=== PATIENT | female | born 1965 | race Caucasian/White ===

== ENCOUNTER 2018-10-25 13:14 | Observation (INO) ==
[2018-10-25] MEDS ORDERED: NITROGLYCERIN SL PRN (14:11)
--- NOTE | 2018-10-25 14:12 | EKG Report ---
Test Performed on : 10/25/2018 1:19:14 PM Test Reason : cp Blood Pressure : / mmHG Vent. Rate : 087 BPM Atrial Rate : 093 BPM P-R Int : 000 ms QRS Dur : 090 ms QT Int : 348 ms P-R-T Axes : 000 029 082 degrees QTc Int : 418 ms Atrial fibrillation. Low voltage QRS Cannot rule out Anterior infarct , age undetermined Abnormal ECG When compared with ECG of 22-DEC-2017 07:16, Atrial fibrillation. has replaced Sinus rhythm. Unconfirmed Result
--- NOTE | 2018-10-25 14:45 | Diag Imaging Result Doc PS360 ---
EXAM: CHEST-2 VIEWS 10/25/2018 HISTORY: chest pain, sob TECHNIQUE: PA and lateral chest COMMENT: There is no evidence of acute cardiac or pulmonary disease. Compared to 07/07/2018 there has been no significant change in the appearance the chest. IMPRESSION: No evidence of acute disease. Electronically signed by Kentrell Coleman 10/25/2018 2:42 PM
[2018-10-25 14:51] LABS: INR 0.94; PROTIME 12.7 Seconds (11.0-16.0)
[2018-10-25 14:52] LABS: PTT 27.3 Seconds (22.3-41.8)
[2018-10-25 14:59] LABS: BASO# 0.04 X1000 (0.0-0.2); BASO% 0.5 % (0.0-0.8); EOS# 0.16 X1000 (0.0-0.7); EOS% 1.8 % (0.0-10.0); HEMATOCRIT 39.8 % (37.0-47.0); HEMOGLOBIN 14.3 g/dL (12.0-16.0); IMM GRAN# 0.03 X1000 (0.0-0.04); IMM GRAN% 0.3 % (0.0-0.5); LYMPH# 2.18 X1000 (1.2-3.4); LYMPH% 25.1 % (20.5-51.1); MCH 31.7 PG (27-31); MCHC 35.9 g/dL (33-37); MCV 88.2 FL (81-99); MONO# 0.86 X1000 (0.11-0.59); MONO% 9.9 % (1.7-9.3); MPV 10.3 FL (7.4-10.4); NEUT# 5.42 X1000 (1.4-6.5); NEUT% 62.4 % (42.2-75.2); PLT 313 X1000 (130-400); RBC 4.51 XMIL (4.2-5.4); RDW 12.9 % (11.5-14.5); WBC 8.69 X1000 (4.8-10.8)
[2018-10-25 15:11] LABS: AGAP 15; ALB/GLOB RATIO 1.4; ALKALINE PHOSPHATASE 76 U/L (32-104); BUN 14 mg/dL (8-22); CALCIUM 9.5 mg/dL (8.8-10.2); CHLORIDE 99 mmol/L (98-107); CK PROFILE 111 U/L (24-173); COSMO 276; CREATININE 0.5 mg/dL (0.5-0.9); ESTIMATED GFR > 60; GLUCOSE 156 mg/dL (70-104); GOT 18 U/L (10-30); GPT 20 U/L (10-36); MAGNESIUM 1.7 mg/dL (1.5-2.7); POTASSIUM 4.2 mmol/L (3.5-5.1); SODIUM 136 mmol/L (136-145); TCO2 22 mmol/L (25-35); TOTAL PROTEIN 6.9 g/dL (6.3-8.3)
--- NOTE | 2018-10-25 17:04 | PROVIDER DOCUMENTATION ---
This chart was entered by Adali Mack Scribe, acting as scribe for Simran Pantoja CRNP. HPI-Chest Pain - General Chief Complaint: Chest Pain Stated Complaint: CP X 1 DAY-HEART PT Time Seen by Provider: 10/25/18 14:04 Source: patient Allergies/Adverse Reactions: Patient Allergies Allergy/AdvReac Type Severity Reaction Status Date / Time erythromycin base Allergy RASH Verified 10/25/18 14:14 Home Medications: Home Medication List Medication Instructions Recorded Confirmed Last Taken Type Aspirin [Aspirin EC] 1 tab PO DAILY 04/14/17 10/25/18 12/21/17 06:45 History Glipizide 5 mg PO DAILY 04/14/17 10/25/18 12/21/17 06:45 History Ticagrelor [Brilinta] 90 mg PO BID 04/14/17 10/25/18 12/21/17 06:45 History ATORVAstatin [Lipitor] 40 mg PO QHS 12/21/17 10/25/18 12/20/17 22:00 History Amlodipine [Norvasc] 10 mg PO DAILY 12/21/17 10/25/18 12/21/17 06:45 History Carvedilol 3.125 mg PO BID 12/21/17 10/25/18 12/21/17 06:45 History Lisinopril/Hydrochlorothiazide 1 each PO DAILY 12/21/17 10/25/18 12/21/17 06:45 History [Lisinopril-Hctz 20-12.5 mg Tab] Metoprolol Tartrate 25 mg PO DAILY 12/21/17 10/25/18 12/21/17 06:45 History Multivitamins/Minerals [Centrum 1 each PO DAILY 12/21/17 10/25/18 12/21/17 06:45 History Silver] Ranolazine [Ranexa] 500 mg PO BID 12/21/17 12/21/17 12/21/17 06:45 History Umeclidinium/Vilanterol [Anoro 1 puff INH DAILY 12/21/17 10/25/18 12/21/17 06:45 History Ellipta 62.5-25 Mcg INH] - History of Present Illness-CP Nature of Presenting Problem: Patient is a 53 year old female who presents with chest pain. States nausea, shortness of breath, and diaphoresis with chest pain. Reports symptoms started 3 hours ago. States history of cardiac stent and A fib. Location: reports: other (midsternal) Chest Pain Radiation: reports: no radiation Quality of Pain: reports: pressure Severity in ED: mild Onset/Duration: 1-3 hours ago (3 hours ago) Timing: still present Associated Symptoms: reports: diaphoresis, nausea, shortness of breath Aspirin Treatment Today: 81 mg x 1, provided at home Prior Chest Pain/Cardiac Workup: reports: cardiac cath (Dec 2017) Similar Symptoms Previously?: No Recently Seen Here or By Another Healthcare Provider: No Review of Systems - Adult - REVIEW OF SYSTEMS - ADULT Constitutional: reports: no symptoms reported. denies: chills, fever, fatique Eyes: reports: no symptoms reported Ears, Nose, Mouth & Throat: reports: no symptoms reported Cardiovascular: reports: see HPI, chest pain, palpitations (chronic). denies: irregular heart rate Respiratory: reports: see HPI, shortness of breath. denies: cough, wheezing Gastrointestinal: reports: see HPI, nausea. denies: abdominal pain, vomiting Genitourinary: reports: no symptoms reported Musculoskeletal: reports: no symptoms reported Integumentary: reports: no symptoms reported Neurological: reports: no symptoms reported Psychiatric: reports: no symptoms reported Endocrine: reports: no symptoms reported Hematologic/Lymphatic: reports: no symptoms reported Allergic/Immunologic: reports: no symptoms reported All Other Systems: Reviewed and Negative Past History - Adult - PAST MEDICAL HISTORY-ADULT Review of Records: reports: Old Records Reviewed, Nursing Assessment Review, Medications Reviewed, Social history reviewed & non-contributory. Major Childhood Illnesses: reports: denies history Cardiovascular: reports: cardiac disease, A-Fib, HTN, hyperlipidemia, other (HX OF SVT AND HAD ABLATION DONE) Respiratory: reports: asthma, COPD Gastrointestinal: reports: GERD Obstetrical/Gynecological: reports: denies history Genitourinary: reports: denies history Musculoskeletal: reports: denies history Neurological: reports: denies history Psychiatric: reports: denies history Endocrine/Immune: reports: Diabetes Other Conditions: reports: denies history - PRIOR SURGERIES/PROCEDURES Surgical/Procedure History: reports: cardiac stent, , tonsillectomy, other (cardiac ablation) - IMMUNIZATION STATUS Childhood Immunizations: See Nurse Assessment Flu Vaccine: See Nurse Assessment - FAMILY HISTORY Family History: reviewed, not pertinent, other (MOTHER HAS CARDIAC DZ) - SOCIAL HISTORY Smoking: cigarettes (former) Substance Use: denies Physical Exam-General - PHYSICAL EXAM-ADULT Initial Vital Signs Reviewed: Yes - CONSTITUTIONAL General Appearance: alert, no apparent distress, obese. negative: lethargic - HEAD, EARS, NOSE, MOUTH & THROAT HENMT: normocephalic/atraumatic, moist mucous membranes. negative: angioedema - NECK Neck: full range of motion, supple, normal inspection - RESPIRATORY Respiratory: chest non-tender, lungs clear, normal breath sounds, no respiratory distress, no accessory muscle use. negative: crackles, rales, rhonchi, stridor, wheezing - CARDIOVASCULAR Cardiovascular: normal peripheral pulses, regular rate, rhythm, no edema. negative: tachycardia - GASTROINTESTINAL (ABDOMEN) Abdominal Exam: normal bowel sounds, non tender, soft. negative: guarding - LYMPHATIC Lymphatic: no adenopathy - MUSCULOSKELETAL Back Exam: normal inspection Extremity: normal range of motion, non-tender, normal inspection. negative: deformity, erythema, swelling - SKIN Integumentary: normal color, normal turgor, warm/dry. negative: diaphoresis, erythema, pallor - NEUROLOGIC Neurologic: grossly normal. negative: aphasia, facial droop - PSYCHIATRIC Psych/Mental Status: normal mood/affect, normal thought content, normal thought process, oriented x 3. negative: anxious - HEART Score HEART Score: History: Moderately Suspicious HEART Score: ECG: Normal HEART Score: Age: 45-65 Years HEART Score: Risk Factors for Atherosclerotic Disease: > or = 3 Risk Factors or History of Atherosclerotic Disease HEART Score: Troponin: < or = Normal Limit Total HEART Score:: 4 Progress - PLAN OF CARE/RESULTS Progress/Plan/Lab Results: Vital Signs - 8 hr 10/25/18 13:20 Temperature 97.8 F Pulse Rate 103 H Respiratory Rate 18 Blood Pressure 168/102 O2 Sat by Pulse Oximetry 96 Laboratory Results - last 24 hr 10/25/18 10/25/18 10/25/18 13:24 13:24 13:24 WBC 8.69 RBC 4.51 Hgb 14.3 Hct 39.8 MCV 88.2 MCH 31.7 H MCHC 35.9 RDW Std Deviation 12.9 Plt Count 313 MPV 10.3 Immature Gran % (Auto) 0.3 Neut % (Auto) 62.4 Lymph % (Auto) 25.1 [place] % (Auto) 9.9 H Eos % (Auto) 1.8 Baso % (Auto) 0.5 Immature Gran # (Auto) 0.03 Neut # (Auto) 5.42 Lymph # (Auto) 2.18 [place] # (Auto) 0.86 H Eos # (Auto) 0.16 Baso # (Auto) 0.04 PT INR PTT (Actin FS) Sodium 136 Potassium 4.2 Chloride 99 Carbon Dioxide 22 L Anion Gap 15 BUN 14 Creatinine 0.5 Estimated GFR/1.73 m2 > 60 BUN/Creatinine Ratio 28 Glucose 156 H Calculated Osmolality 276 Calcium 9.5 Magnesium 1.7 Total Bilirubin 0.30 AST 18 ALT 20 Alkaline Phosphatase 76 Creatine Kinase 111 Troponin T Bjd-V-[id number] Pept 826 H Total Protein 6.9 Albumin 4.0 Globulin 2.9 Albumin/Globulin Ratio 1.4 10/25/18 10/25/18 13:24 13:24 WBC RBC Hgb Hct MCV MCH MCHC RDW Std Deviation Plt Count MPV Immature Gran % (Auto) Neut % (Auto) Lymph % (Auto) [place] % (Auto) Eos % (Auto) Baso % (Auto) Immature Gran # (Auto) Neut # (Auto) Lymph # (Auto) [place] # (Auto) Eos # (Auto) Baso # (Auto) PT 12.7 INR 0.94 PTT (Actin FS) 27.3 Sodium Potassium Chloride Carbon Dioxide Anion Gap BUN Creatinine Estimated GFR/1.73 m2 BUN/Creatinine Ratio Glucose Calculated Osmolality Calcium Magnesium Total Bilirubin AST ALT Alkaline Phosphatase Creatine Kinase Troponin T < 0.010 [id number] Pept Total Protein Albumin Globulin Albumin/Globulin Ratio Orders Category Date Time Status Nursing- Obtain EKG ONCE Care 10/25/18 14:10 Active CHEST-2 VIEWS [RAD] Stat Exams 10/25/18 14:10 Completed BNP [PRO B-NATRIURETIC PEPTIDE] Stat Lab 10/25/18 13:24 Completed CBC WITH DIFF [HEME] Stat Lab 10/25/18 13:24 Completed CK PROFILE [SP CHEM] Stat Lab 10/25/18 13:24 Completed COMPREHENSIVE METABOLIC PANEL [CHEM] Stat Lab 10/25/18 13:24 Completed MAGNESIUM [CHEM] Stat Lab 10/25/18 13:24 Completed PROTIME WITH INR [COAG] Stat Lab 10/25/18 13:24 Completed PTT [COAG] Stat Lab 10/25/18 13:24 Completed TROPONIN T Stat Lab 10/25/18 13:24 Completed Nitroglycerin Sl [Nitroglycerin] Med 10/25/18 14:11 Active 0.4 mg SL Q5M PRN PRN EKG [EKG] Stat Ther 10/25/18 14:10 Draft Result Diagrams: 10/25/18 13:24 10/25/18 13:24 - REASSESSMENT Reassessment #1 Time Reassessed: 15:20 (Discussed pt with Dr Cobb, suggests admission, will page hospitalist. discussed findings thus far with pt. Pt states she is still having pain, reports she has not had any nitro SL yet, RN at bedside to start IV.) Status: unchanged - EKG 1 Time of EKG reading by physician:: 13:19 EKG Read and Signed by:: Candido Cobb EKG Interpretation (*Must complete 3 of following elements*): Abnormal Rate: 87 Rhythm: atrial fibrillation [place]: normal QRS: other (low voltage) Comments: cannot rule out anterior infarct, age undetermined - XRAY 1 XRAY Study: Chest Impression: See EMR Report ( EXAM: CHEST-2 VIEWS 10/25/2018 HISTORY: chest pain, sob TECHNIQUE: PA and lateral chest COMMENT: There is no evidence of acute cardiac or pulmonary disease. Compared to 07/07/2018 there has been no significant change in the appearance the chest. IMPRESSION: No evidence of acute disease. Electronically signed by Kentrell Coleman 10/25/2018 2:42 PM 10/25/18 1442 Interpreting Physician: Kentrell Coleman MD Dictated Date/Time: 10/25/18 1442 cc: Simran Pantoja; Leandro Dempsey Jr, MD) - CONSULTS/PCP/HOSPITALIST Notification #1 *Consult/PCP/Hospitalist*: SANDRA Howell for Hospitalist Time Discussed: 15:38 Reason/Comments: SANDRA Khalil, consulted with Lynda about patient. Consult Disposition: Will see in ED, Admit Departure - Departure Date of Disposition Decision: 10/25/18 Time of Disposition Decision: 15:39 DIAGNOSIS: Chest pain Disposition: ADMITTED INPATIENT 09 Certified Medical Emergency: Emergent Condition: Stable Referrals and Follow-Ups: Leandro Dempsey Jr, MD [Primary Care Provider] - - Critical Care Note This patient required my direct & personal management of CC.: No Attestation - Physician/ MIGUEL Attestation Patient care was provided by Advanced Practice Provider:: Yes Advanced Practice Provider:: Simran Pantoja Advanced Practice Provider documentation review:: The Mid-level provider documentation, treatment plan and medical decision making was reviewed by the physician who agrees with all treatment and medical decision making by the MLP. The physician spent face to face time with patient:: No Advanced Practice Provider documentation review:: Supervising physician onsite and consulted in the evaluation and care of this patient. The physician did not have a face to face encounter with the patient. This chart was documented by the indicated scribe, (Adali Mack Scribe) and accurately reflects the services I performed and decisions made by me, Simran Pantoja CRNP, as attested by the provider's signature.
[2018-10-25] MEDS ORDERED: MORPHINE IV PRN (18:43)
--- NOTE | 2018-10-25 19:38 | HISTORY AND PHYSICAL ---
ADDENDUM: This is a 53-year-old female with heart failure and CAD status post PCI. She came in with crushing chest pain at rest. She is a patient of Dr. Roy, I think. In any case, the patient was evaluated in the ER. Her workup was negative because of risk factors. Obviously, she is going to be placed in observation for chest pain. She had a cardiac cath in 2017 so it was almost 11 months ago so we will get cardiology to see her. I plan for possible stress test noninvasive imaging tomorrow unless Cardiology feels differently. Her heart failure seems to be compensated. Lungs are clear. She is not tachycardic. We will continue her regular medications and monitor closely. I will hold her diabetic medication just because she is going to be n.p.o. tomorrow. This is a [id number] encounter note with Uma Tyler. cc: MD Leandro Jose MD
--- NOTE | 2018-10-25 19:38 | HISTORY AND PHYSICAL ---
PRIMARY CARE PROVIDER: Dr. Leandro Dempsey [employer] FORMS: Dr. Roy. CHIEF COMPLAINT: Chest pain, palpitations. HISTORY OF PRESENT ILLNESS: Ms. Fletcher is a 53-year-old, female, who carries a past medical history of coronary artery disease, status post stenting 2 years ago, hypertension, diabetes mellitus type 2, morbid obesity, COPD, dyslipidemia, who reported to the ED after experiencing what she describes as a ton of bricks sitting on her chest with center-type chest pain. Positive for nausea, diaphoresis, dizziness, palpitations. She states she is normally short of breath, but she has been more short of breath. The center pain is pretty much resolved. She just now feels pressure. She did not receive any medications in the ER that relieved this pain. It was just relieved by rest. She denies any recent illness, fever, chills. No issues with urinary or issues with bowel movements. Workup in the ED, chest x-ray showed no evidence of acute disease. EKG showed atrial fibrillation at 87 beats per minute. First set of troponin was negative. Other laboratory data was essentially unremarkable. We will admit her to the medical telemetry floor, make her n.p.o. after midnight, consult Cardiology. PAST MEDICAL HISTORY: 1. Coronary artery disease, status post stenting. 2. Hypertension. 3. Diabetes mellitus type 2. 4. Morbid obesity. 5. COPD. 6. Dyslipidemia. PAST SURGICAL HISTORY: 1. section x2, cardiac ablation. 2. Tonsillectomy. 3. Cardiac stent. 4. Tubes in the ears. FAMILY HISTORY: Reviewed and noncontributory. SOCIAL HISTORY: Patient lives at home with family. She quit smoking back in 2018. No alcohol or illicit drug use. ALLERGIES: Erythromycin base. HOME MEDICATIONS: 1. Lipitor 40 mg p.o. at bedtime. 2. Anoro Ellipta 62.5/25 mcg inhaler 1 puff inhaled daily. 3. Aspirin 81 mg p.o. daily. 4. Brilinta 90 mg p.o. b.i.d. 5. Carvedilol 3.125 mg p.o. b.i.d. 6. Centrum Silver 1 each p.o. daily. 7. Glipizide 5 mg p.o. daily. 8. Lisinopril/hydrochlorothiazide 20/12.5 mg 1 each p.o. daily. 9. Metoprolol 25 mg p.o. daily. 10. Norvasc 10 mg p.o. daily. 11. Ranexa 500 mg p.o. b.i.d. PHYSICAL EXAMINATION: VITAL SIGNS: Only recorded vital signs are from 1320, temperature is 97.8 degrees, heart rate 103, respirations 18, blood pressure 168/102, O2 is 96% on room air. GENERAL: Ms. Fletcher is a pleasant, 53-year-old, female, who is sitting up in the bed in no acute distress. HEENT: Atraumatic, normocephalic. PERRL. NECK: Supple. Trachea midline. CARDIOVASCULAR: S1-S2 appreciated. No murmurs, gallops, rubs noted. RESPIRATORY: Lung sounds clear bilaterally. ABDOMEN: Obese, soft, nontender, nondistended. Positive bowel sounds x4 quadrants. EXTREMITIES: Lower extremities negative for edema. NEUROLOGIC: Patient has no focal deficits. DIAGNOSTIC DATA: Chest x-ray, no acute disease. EKG, atrial fibrillation at 87 beats per minute. LABORATORY DATA: White count is 8, hemoglobin and hematocrit 14 and 39, platelet count is 313,000. Sodium 136, potassium 4.2, BUN 14, creatinine 0.5, blood glucose is 156. Troponin less than 0.010. ProBNP is 826. ASSESSMENT AND PLAN: 1. Chest pain in a known patient with cardiac disease, status post stenting 2 years ago. We will continue her on her home medications, consult Cardiology, check serial cardiac enzymes. We will make her n.p.o. after midnight. She had a full cardiac workup back in December 2017. 2. Elevated proBNP with no history of congestive heart failure. We will recheck an echocardiogram in the a.m. 3. Diabetes mellitus type 2. I will place her on patterned blood sugars with sliding scale insulin. 4. Hypertension. We will continue with her antihypertensive regimen. 5. Morbid obesity. Patient will need to be counseled on weight loss and proper diet and exercise. 6. Gastroesophageal reflux disease. Continue patient's home medications. 7. Further recommendations to follow physician evaluation, laboratory and diagnostic data. Dictated by SANDRA Damon for Ney Boyd MD cc: MD Joe Jose MD Joel A. Dempsey, MD
[2018-10-25] MEDS: HUMALOG SUBQ SCH (20:27)
[2018-10-25] MEDS ORDERED: LIPITOR PO SCH (21:00)
[2018-10-25] MEDS: COREG PO SCH (22:04)
[2018-10-25] MEDS: BRILINTA PO SCH (22:04)
[2018-10-26 07:20] LABS: BASO# 0.04 X1000 (0.0-0.2); BASO% 0.5 % (0.0-0.8); EOS# 0.19 X1000 (0.0-0.7); EOS% 2.5 % (0.0-10.0); HEMATOCRIT 41.1 % (37.0-47.0); HEMOGLOBIN 14.5 g/dL (12.0-16.0); LYMPH# 1.65 X1000 (1.2-3.4); LYMPH% 21.5 % (20.5-51.1); MCH 31.4 PG (27-31); MCHC 35.3 g/dL (33-37); MONO# 0.66 X1000 (0.11-0.59); MONO% 8.6 % (1.7-9.3); NEUT# 5.14 X1000 (1.4-6.5); NEUT% 66.9 % (42.2-75.2); PLT 299 X1000 (130-400); RBC 4.62 XMIL (4.2-5.4); RDW 13.1 % (11.5-14.5); WBC 7.68 X1000 (4.8-10.8)
[2018-10-26] MEDS ORDERED: ANORO ELLIPTA 62.5-25 MCG INH INH SCH (07:30)
[2018-10-26 07:33] LABS: HEMOGLOBIN A1C 6.5 % (4.8-6.0)
[2018-10-26 07:37] LABS: AGAP 13; ALB/GLOB RATIO 1.2; ALBUMIN 3.9 g/dL (3.5-5.0); ALKALINE PHOSPHATASE 71 U/L (32-104); BUN 11 mg/dL (8-22); CALCIUM 8.7 mg/dL (8.8-10.2); CHLORIDE 102 mmol/L (98-107); COSMO 279; CREATININE 0.5 mg/dL (0.5-0.9); ESTIMATED GFR > 60; GLUCOSE 176 mg/dL (70-104); GOT 20 U/L (10-30); GPT 23 U/L (10-36); POTASSIUM 4.3 mmol/L (3.5-5.1); SODIUM 138 mmol/L (136-145); TCO2 23 mmol/L (25-35); TOTAL BILIRUBIN 0.34 mg/dL (0.20-1.00); TOTAL PROTEIN 7.1 g/dL (6.3-8.3)
--- NOTE | 2018-10-26 07:49 | EKG Report ---
Test Performed on : 10/26/2018 07:04:35 AM Test Reason : cp Blood Pressure : / mmHG Vent. Rate : 073 BPM Atrial Rate : 073 BPM P-R Int : 150 ms QRS Dur : 092 ms QT Int : 396 ms P-R-T Axes : 005 054 052 degrees QTc Int : 436 ms Normal sinus rhythm. Cannot rule out Anterior infarct (cited on or before 25-OCT-2018) Abnormal ECG When compared with ECG of 25-OCT-2018 13:19, (Unconfirmed) Sinus rhythm. has replaced Atrial fibrillation. Confirmed by Harpreet CARDENAS MRajiv Bynum ([id number]) on 10/30/2018 9:29:31 PM
[2018-10-26] MEDS: HUMALOG SUBQ SCH ×3 (07:50→15:36)
[2018-10-26] MEDS ORDERED: LEXISCAN ONE (08:32)
[2018-10-26] MEDS ORDERED: ASPIRIN EC PO SCH (09:00)
[2018-10-26] MEDS ORDERED: LOPRESSOR PO SCH (09:00)
[2018-10-26] MEDS ORDERED: CENTRUM SILVER PO SCH (09:00)
[2018-10-26] MEDS ORDERED: PRINZIDE 20/12.5MG PO SCH (09:00)
[2018-10-26] MEDS ORDERED: GLUCOTROL PO SCH (09:00)
[2018-10-26] MEDS ORDERED: NORVASC PO SCH (09:00)
[2018-10-26] MEDS: COREG PO SCH (10:02)
[2018-10-26] MEDS: BRILINTA PO SCH (10:03)
--- NOTE | 2018-10-26 14:10 | Diag Imaging Result Document ---
PROCEDURE NAME: MYOCARDIAL PERF SCAN, STR/REST - 10/26/2018 LEXISCAN SESTAMIBI INTERPRETATION: SUMMARY: The patient was administered 15.7 mCi of technetium-99m sestamibi, after which resting cardiac images were obtained. The patient was administered Lexiscan 0.4 mg intravenously after which the heart rate went from 61 beats per minute to 92 beats per minute, and the blood pressure went from 150/71 to 148/58. With Lexiscan, the patient denied chest discomfort. Following the administration of Lexiscan, the patient was administered 45.8 mCi of technetium-99m sestamibi, after which gated stress cardiac images were obtained. Baseline ECG demonstrated sinus rhythm. With Lexiscan, there were no diagnostic ST-segment changes. SPECT images were reconstructed in the short, horizontal long, and vertical long axes. Review of these images demonstrated mildly diminished activity in the anterior wall and apex on stress images, which appears similar on resting images. No significant reversibility is evident. Gated images demonstrate calculated left ventricular ejection fraction of 80% with symmetrical wall motion. CONCLUSIONS: 1. Adequate response to Lexiscan. 2. Clinically negative for chest pain. 3. Electrocardiographically negative for Lexiscan-induced myocardial ischemia. 4. Lexiscan sestamibi images demonstrate fixed mildly diminished activity in the anterior wall and apex with corresponding preserved regional wall motion most consistent with breast attenuation artifact. There is no convincing scintigraphic evidence of inducible myocardial ischemia. Normal left ventricular systolic function demonstrated. cc: MD Ney Tompkins MD
[2018-10-26 15:07] VITALS: BP 159/66
--- NOTE | 2018-10-27 00:27 | ECHO REPORT ---
ORDER DATE: 10/26/2018 MEASUREMENTS: Left ventricular internal diameter in diastole 5.3. Aortic root 2.5. Left atrium 4.0. SUMMARY: 1. Very difficult study for interpretation due to very limited acoustic window quality. 2. Aortic valve is not well imaged but appears to open adequately on 2-dimensional images. Peak gradient across aortic valve is 19 mmHg. Mitral and tricuspid valves are without evidence of structural abnormality with trace mitral regurgitation and trace tricuspid regurgitation. The aortic root is normal in size. 3. Normal left ventricular chamber size with mild to moderate concentric left hypertrophy is demonstrated. Estimated left ejection fraction appears to be at least 65%. No regional wall motion abnormalities are evident. Left atrium is borderline enlarged. Right atrium and right ventricle are normal in size with grossly preserved right ventricular systolic function. 4. No pericardial effusion. 5. Appearance of inferior vena cava suggests normal central venous pressure. CONCLUSIONS: 1. Very difficult study for interpretation. 2. Aortic valve sclerosis with adequate aortic valve opening evident. 3. Mild to moderate concentric left ventricular hypertrophy with estimated left ventricular ejection fraction at least 65%. 4. Borderline left atrial enlargement. cc: Cecilio Esparza MD
--- NOTE | 2018-10-27 07:35 | DISCHARGE SUMMARY ---
ADMISSION DATE: 10/25/2018 DISCHARGE DATE: 10/26/2018 DISCHARGE DIAGNOSES: 1. Chest pain, atypical. 2. Known coronary artery disease. 3. Diabetes. HISTORY: Briefly, this is a 53-year-old female patient of Dr. Dempsey and Dr. Roy presenting with chest pressure. She has known CAD. She has had a stent in the past. She is hypertensive and diabetic. She came in for evaluation. She was found to have a negative workup initially. Her cardiac enzymes have been negative, and her A1c shows pretty good control diabetes 6.5. EKGs were unremarkable. She underwent myocardial perfusion stress testing which was negative clinically. She had a fixed defect which felt was due to breast attenuation, but there was no ischemia. EF was intact. Plan today is for her to be discharged and follow up with her primary payroll and benefits assistant Dr. Roy and her PCP in 1 to 2 weeks. I am going to empirically start Prilosec and refer her to GI for evaluation. She may need endoscopy and/or ultrasonography of gallbladder to rule out other etiologies of chest pain. DISCHARGE MEDICATIONS: 1. Lipitor 40. 2. Anoro daily. 3. Aspirin 81 daily. 4. Brilinta 90 b.i.d. 5. Multivitamin daily. 6. Glipizide 5 daily. 7. Lisinopril hydrochlorothiazide daily 20/12.5. 8. Amlodipine 10 daily. 9. Coreg 6.25 b.i.d. 10. Prilosec 40 daily. DISCHARGE CONDITION: Stable. TIME SPENT: 32 minute discharge. cc: MD Dr. Ke Jose MD
== END 2018-10-26 17:05 | disposition home or self-care (01) ==
LOC: ED 13:14 → 3N 13:14
PROVIDERS: ATTEND Internal Medicine

== ENCOUNTER 2019-01-26 14:49 | Inpatient (IN) ==
[2019-01-26] MEDS ORDERED: ASPIRIN PO ONE (14:55)
--- NOTE | 2019-01-26 15:04 | EKG Report ---
Test Performed on : 01/26/2019 2:58:29 PM Test Reason : CP Blood Pressure : / mmHG Vent. Rate : 088 BPM Atrial Rate : 088 BPM P-R Int : 158 ms QRS Dur : 090 ms QT Int : 354 ms P-R-T Axes : 037 -13 070 degrees QTc Int : 428 ms Sinus rhythm. with occasional premature ventricular complexes. Otherwise normal ECG When compared with ECG of 26-OCT-2018 07:04, premature ventricular complexes. are now present Questionable change in QRS axis Unconfirmed Result
[2019-01-26 15:17] LABS: BASO# 0.02 X1000 (0.0-0.2); BASO% 0.2 % (0.0-0.8); EOS# 0.08 X1000 (0.0-0.7); EOS% 0.7 % (0.0-10.0); HEMATOCRIT 44.6 % (37.0-47.0); HEMOGLOBIN 15.7 g/dL (12.0-16.0); LYMPH# 2.35 X1000 (1.2-3.4); MCH 31.5 PG (27-31); MCHC 35.2 g/dL (33-37); MCV 89.6 FL (81-99); MONO# 0.83 X1000 (0.11-0.59); MONO% 7.4 % (1.7-9.3); MPV 10.4 FL (7.4-10.4); NEUT# 7.93 X1000 (1.4-6.5); NEUT% 70.7 % (42.2-75.2); PLT 303 X1000 (130-400); RBC 4.98 XMIL (4.2-5.4); RDW 12.8 % (11.5-14.5); WBC 11.21 X1000 (4.8-10.8)
--- NOTE | 2019-01-26 15:22 | Diag Imaging Result Doc PS360 ---
EXAM: CHEST-2 VIEWS 01/26/2019 HISTORY: CP TECHNIQUE: PA and lateral chest COMMENT: There is no evidence of acute cardiac or pulmonary disease. Compared to 10/25/2018 there has been no significant change in the appearance of the chest. IMPRESSION: No evidence of acute disease. Electronically signed by Kentrell Coleman 01/26/2019 3:20 PM
[2019-01-26 16:00] LABS: AGAP 17; ALB/GLOB RATIO 1.6; ALBUMIN 4.6 g/dL (3.5-5.0); ALKALINE PHOSPHATASE 89 U/L (32-104); BUN 15 mg/dL (8-22); CALCIUM 9.8 mg/dL (8.8-10.2); CHLORIDE 97 mmol/L (98-107); CK PROFILE 157 U/L (24-173); COSMO 271; CREATININE 0.7 mg/dL (0.5-0.9); ESTIMATED GFR > 60; GLUCOSE 108 mg/dL (70-104); GOT 18 U/L (10-30); GPT 18 U/L (10-36); POTASSIUM 4.2 mmol/L (3.5-5.1); SODIUM 135 mmol/L (136-145); TCO2 21 mmol/L (25-35); TOTAL BILIRUBIN 0.24 mg/dL (0.20-1.00); TOTAL PROTEIN 7.4 g/dL (6.3-8.3)
[2019-01-26 16:11] LABS: INR 0.91; PROTIME 12.4 Seconds (11.0-16.0)
[2019-01-26 16:12] LABS: PTT 26.2 Seconds (22.3-41.8)
--- NOTE | 2019-01-26 16:27 | PROVIDER DOCUMENTATION ---
HPI-General Adult - General Chief Complaint: Chest Pain Stated Complaint: CP/HEART PALPITATIONS Time Seen by Provider: 01/26/19 15:57 Source: patient Allergies/Adverse Reactions: Patient Allergies Allergy/AdvReac Type Severity Reaction Status Date / Time erythromycin base Allergy RASH Verified 01/26/19 14:54 Home Medications: Home Medication List Medication Instructions Recorded Confirmed Last Taken Type Aspirin [Aspirin EC] 1 tab PO DAILY 04/14/17 01/26/19 12/21/17 06:45 History Glipizide 10 mg PO DAILY 04/14/17 01/26/19 12/21/17 06:45 History Lisinopril/Hydrochlorothiazide 1 each PO BID 12/21/17 01/26/19 12/21/17 06:45 History [Lisinopril-Hctz 20-12.5 mg Tab] Diltiazem HCl [Diltiazem 24Hr ER] 1 cap PO DAILY 01/26/19 01/26/19 Unknown Hi story Isosorbide Mononitrate [Isosorbide 1 tab PO DAILY 01/26/19 01/26/19 Unknown History Mononitrate ER] Metformin HCl 1 tab PO BID 01/26/19 01/26/19 Unknown History - History of Present Illness -Gen Adult Nature of Presenting Problems: 53yo female presents with CC of chest pressure and palpitations. The patient reports that she has chronic palpitations, but reports acute worsening of palpitations with chest pressure starting yesterday. The patient reports that associated with these symptoms were facial and bilateral arm numbness. The patie nt denies any shortness of breath. The pain is not relieved with rest. The patient does report some increase in blood pressure as well as a headache. The patient denies fevers, nausea, diarrhea, hemoptysis, or abdominal pain. Review of Systems - Adult - REVIEW OF SYSTEMS - ADULT Constitutional: denies: fever Eyes: denies: no symptoms reported Ears, Nose, Mouth & Throat: reports: see HPI, other (facial numbness) Cardiovascular: reports: chest pain, palpitations Respiratory: denies: hemoptysis, shortness of breath Gastrointestinal: denies: abdominal pain Genitourinary: reports: no symptoms reported Musculoskeletal: reports: back pain Integumentary: reports: no symptoms reported Neurological: reports: headache/migraines, numbness Psychiatric: reports: no symptoms reported Endocrine: reports: no symptoms reported Hematologic/Lymphatic: reports: no symptoms reported, other (no bleeding) Allergic/Immunologic: reports: no symptoms reported, other (no swelling) Past History - Adult - PAST MEDICAL HISTORY-ADULT Review of Records: reports: Nursing Assessment Review Major Childhood Illnesses: reports: denies history Cardiovascular: reports: cardiac disease, A-Fib, HTN, hyperlipidemia, other (HX OF SVT AND HAD ABLATION DONE) Respiratory: reports: asthma, COPD Gastrointestinal: reports: GERD Obstetrical/Gynecological: reports: denies history Genitourinary: reports: denies history Musculoskeletal: reports: denies history Neurological: reports: denies history Psychiatric: reports: denies history Endocrine/Immune: reports: Diabetes Other Conditions: reports: denies history - PRIOR SURGERIES/PROCEDURES Surgical/Procedure History: reports: cardiac stent, , tonsillectomy, other (cardiac ablation) - IMMUNIZATION STATUS Childhood Immunizations: See Nurse Assessment Flu Vaccine: See Nurse Assessment - FAMILY HISTORY Family History: other (MOTHER HAS CARDIAC DZ and FMHX of CVA) - SOCIAL HISTORY Smoking: denies Substance Use: none/never Alcohol Use Frequency: never Physical Exam-General - PHYSICAL EXAM-ADULT Initial Vital Signs Reviewed: Yes - CONSTITUTIONAL General Appearance: appears well, alert, no apparent distress - EYES Eyes: negative: conjuctival exudate, sclera injected, scleral icterus - HEAD, EARS, NOSE, MOUTH & THROAT HENMT: normocephalic/atraumatic, moist mucous membranes - RESPIRATORY Respiratory: lungs clear, normal breath sounds. negative: rales, stridor, wheezing - CARDIOVASCULAR Cardiovascular: regular rate, rhythm, no edema - GASTROINTESTINAL (ABDOMEN) Abdominal Exam: non tender, soft - MUSCULOSKELETAL Back Exam: normal inspection Extremity: non-tender - SKIN Integumentary: normal color, normal turgor, warm/dry - NEUROLOGIC Neurologic: grossly normal - PSYCHIATRIC Psych/Mental Status: normal mood/affect, normal thought content, normal thought process Progress - PLAN OF CARE/RESULTS Progress/Plan/Lab Results: Vital Signs - 8 hr 01/26/19 14:50 Temperature 97.5 F L Pulse Rate 90 Respiratory Rate 20 Blood Pressure 176/94 O2 Sat by Pulse Oximetry 96 Laboratory Results - last 24 hr 01/26/19 01/26/19 01/26/19 15:08 15:08 15:08 WBC 11.21 H RBC 4.98 Hgb 15.7 Hct 44.6 MCV 89.6 MCH 31.5 H MCHC 35.2 RDW Std Deviation 12.8 Plt Count 303 MPV 10.4 Immature Gran % (Auto) 0.0 Neut % (Auto) 70.7 Lymph % (Auto) 21.0 [place] % (Auto) 7.4 Eos % (Auto) 0.7 Baso % (Auto) 0.2 Immature Gran # (Auto) 0.00 Neut # (Auto) 7.93 H Lymph # (Auto) 2.35 [place] # (Auto) 0.83 H Eos # (Auto) 0.08 Baso # (Auto) 0.02 PT INR PTT (Actin FS) D-Dimer, Quantitative Sodium 135 L Potassium 4.2 Chloride 97 L Carbon Dioxide 21 L Anion Gap 17 BUN 15 Creatinine 0.7 Estimated GFR/1.73 m2 > 60 BUN/Creatinine Ratio 21 Glucose 108 H Calculated Osmolality 271 Calcium 9.8 Total Bilirubin 0.24 AST 18 ALT 18 Alkaline Phosphatase 89 Creatine Kinase 157 Troponin T [id number] Pept 54 Total Protein 7.4 Albumin 4.6 Globulin 2.8 Albumin/Globulin Ratio 1.6 01/26/19 01/26/19 01/26/19 15:08 15:08 15:08 WBC RBC Hgb Hct MCV MCH MCHC RDW Std Deviation Plt Count MPV Immature Gran % (Auto) Neut % (Auto) Lymph % (Auto) [place] % (Auto) Eos % (Auto) Baso % (Auto) Immature Gran # (Auto) Neut # (Auto) Lymph # (Auto) [place] # (Auto) Eos # (Auto) Baso # (Auto) PT 12.4 INR 0.91 PTT (Actin FS) 26.2 D-Dimer, Quantitative 1.72 H Sodium Potassium Chloride Carbon Dioxide Anion Gap BUN Creatinine Estimated GFR/1.73 m2 BUN/Creatinine Ratio Glucose Calculated Osmolality Calcium Total Bilirubin AST ALT Alkaline Phosphatase Creatine Kinase Troponin T < 0.010 [id number] Pept Total Protein Albumin Globulin Albumin/Globulin Ratio Orders Category Date Time Status Cardiac Monitoring DIRECTED Care 01/26/19 15:00 Active Oxygen Therapy- ED Nursing DIRECTED Care 01/26/19 15:00 Active Saline Loc NOW Care 01/26/19 15:00 Active CHEST-2 VIEWS [RAD] Stat Exams 01/26/19 15:00 Completed CTA [CT ANGIOGRM PULMONARY ARTERIES] [CT] Stat Exams 01/26/19 16:25 Ordered CBC WITH ELECTRONIC DIFF [HEME] Stat Lab 01/26/19 15:08 Completed CK PROFILE [SP CHEM] Stat Lab 01/26/19 15:08 Completed COMPREHENSIVE METABOLIC PANEL [CHEM] Stat Lab 01/26/19 15:08 Completed D-DIMER [COAG] Stat Lab 01/26/19 15:08 Completed PRO B-NATRIURETIC PEPTIDE Stat Lab 01/26/19 15:08 Completed PROTIME WITH INR [COAG] Stat Lab 01/26/19 15:08 Completed PTT [COAG] Stat Lab 01/26/19 15:08 Completed TROPONIN T Stat Lab 01/26/19 15:08 Completed Aspirin Med 01/26/19 14:55 Discontinued 325 mg PO NOW ONE CP/SOB/Palp >45 yrs of Age Stat Oth 01/26/19 14:55 Ordered EKG [EKG] Stat Ther 01/26/19 15:00 Draft Result Diagrams: 01/26/19 15:08 01/26/19 15:08 - REASSESSMENT Reassessment #1 Status: other (CTA negative, troponin negative. Given patient hx of cardiac stent and HTN, HLD, and DM, with heart score of 4, will plan on admission for observation and [facility] stress testing. Discussed with the hospitalist who has accepted the pateint.) - EKG 1 Time of EKG reading by physician:: 14:58 EKG Read and Signed by:: Yaa Benedict (Entered by Dr. Parker) EKG Interpretation (*Must complete 3 of following elements*): Normal Rate: 88 Rhythm: sinus with 1 PVC [place]: normal NC Interval: normal ST Wave: normal Departure - Departure Date of Disposition Decision: 01/26/19 Time of Disposition Decision: 19:17 DIAGNOSIS: Atypical chest pain Disposition: ADMITTED INPATIENT 09 Certified Medical Emergency: Emergent Condition: Fair Referrals and Follow-Ups: None,PCP [Primary Care Provider] - - Critical Care Note This patient required my direct & personal management of CC.: No Attestation - Physician/ MIGUEL Attestation Patient care was provided by Advanced Practice Provider:: No The physician spent face to face time with patient:: Yes Advanced Practice Provider documentation review:: Supervising physician onsite a nd consulted in the evaluation and care of this patient. The physician did have a face to face encounter with the patient. - HEART Score HEART Score: History: Moderately Suspicious HEART Score: ECG: Normal HEART Score: Age: 45-65 Years HEART Score: Risk Factors for Atherosclerotic Disease: > or = 3 Risk Factors or History of Atherosclerotic Disease HEART Score: Troponin: < or = Normal Limit Total HEART Score:: 4
[2019-01-26] MEDS ORDERED: NITROGLYCERIN TOP ONE (17:07)
--- NOTE | 2019-01-26 17:25 | Diag Imaging Result Doc PS360 ---
EXAM: CT ANGIOGRAM PULMONARY ARTERIES 01/26/2019 HISTORY: Chest pain and elevated D-dimer TECHNIQUE: This exam was performed using automated exposure control, adjustment of mA or kV according to patient size, and/or use of iterative reconstruction technique. COMMENT: 3-D MIPS were performed. There are no filling defects in the pulmonary arteries. There is some atherosclerotic calcification in the thoracic aorta without evidence of aneurysm or dissection. There is calcification in the coronary arteries particularly in the left anterior descending and left main coronary arteries. There are no abnormal fluid collections. There is no significant adenopathy. There is a pleural-based opacity present in the anterior inferior medial right upper lobe. Compared to the previous study of 12/21/2017 this was not present previously. There are some platelike fibrotic opacities in the posterior costophrenic sulcus of the left lower lobe which were previously present. IMPRESSION: Pleural-based opacity in the right upper lobe as described of uncertain significance. No evidence of pulmonary emboli. Electronically signed by Kentrell Coleman 01/26/2019 5:22 PM
--- NOTE | 2019-01-26 22:35 | HISTORY AND PHYSICAL ---
PRIMARY CARE PHYSICIAN: Dr. Dempsey. CHIEF COMPLAINT: Chest pain. HISTORY OF PRESENTING ILLNESS: A 53-year-old female with a history of coronary disease, hypertension, diabetes mellitus type 2, and COPD who presented to the emergency department with 2 days history of having pressure-like chest pain. Patient states that she was short of breath, was nauseated and did not feel well. She was evaluated in the emergency department and due to her presenting symptoms, it was thought that we will place her in observation for further evaluation and management. At the time of my examination, the patient denied any headache, fever, chills, hemoptysis, melena, weight changes, but complained of chest pain and shortness of breath. PAST MEDICAL HISTORY: Includes coronary artery disease, hypertension, diabetes mellitus type 2, COPD, dyslipidemia. PAST SURGICAL HISTORY: Coronary stent, tonsillectomy, tubes in ears. ALLERGIES TO: Erythromycin. CURRENT MEDICATIONS: Aspirin 81 mg p.o. daily, diltiazem 240 mg p.o. daily, glipizide 10 mg p.o. daily, isosorbide mononitrate 30 mg p.o. daily, lisinopril/hydrochlorothiazide 20/12.5 one p.o. b.i.d., metformin 850 mg p.o. b.i.d. SOCIAL HISTORY: She is a former smoker. Denies any history of alcohol or illicit drug use. FAMILY HISTORY: Positive for coronary disease in mother. REVIEW OF SYSTEMS: Fourteen point review of systems is as in HPI. Other systems negative. PHYSICAL EXAMINATION: GENERAL: Cooperative, friendly female she is resting more comfortably now. VITAL SIGNS: Temperature 97.5 degrees, pulse 90, respirations 20, blood pressure 176/94. HEENT: Atraumatic, normocephalic. Extraocular movements intact. PERRLA. NECK: Supple. CHEST: Clear to auscultation. CARDIOVASCULAR: Regular rate and rhythm. ABDOMEN: Soft, positive bowel sounds. EXTREMITIES: No edema. NEUROLOGIC: She is awake, alert, oriented x3. : No bladder distention. SKIN: Warm. LABORATORIES AND STUDIES: WBC 11.21, hemoglobin 15.7, hematocrit 44.6, platelets 303,000. Sodium 135, potassium 4.2, chloride 97, CO2 is 21, BUN is 15, creatinine 0.7, glucose 108, troponin 0.010. ASSESSMENT: A 53-year-old female with a history of coronary disease, hypertension, diabetes mellitus type 2, and chronic obstructive pulmonary disease, who had presented to the emergency department with 2 days history of having chest pain. She was evaluated in the emergency department. Due to her presenting symptoms, we will place her in for observation for further evaluation management. 1. Chest pain. 2. Coronary artery disease. 3. Diabetes mellitus type 2. 4. Hypertension. PLAN: 1. We will admit patient to medical floor with telemetry. 2. We will continue with cardiac workup. Check EKG, serial cardiac enzymes. Have patient continue on aspirin. 3. We will use sublingual nitroglycerin p.r.n. chest pain. 4. Consult Cardiology. 5. Monitor blood glucose and put patient on sliding scale insulin regimen. 6. We will monitor blood pressure. Resume antihypertensive agents. 7. Put patient on deep vein thrombosis prophylaxis with Lovenox. 8. We will continue to follow and reassess and make further recommendation based on patient's clinical course. cc: Rico Lopez MD
[2019-01-26] MEDS ORDERED: LOVENOX SUBQ SCH (23:47)
[2019-01-26] MEDS ORDERED: TYLENOL PO PRN (23:47)
[2019-01-26] MEDS ORDERED: ZOFRAN IV PRN (23:47)
[2019-01-27] MEDS: HUMULIN R SUBQ SCH ×2 (06:49→11:32)
[2019-01-27] MEDS ORDERED: PRILOSEC PO SCH (07:00)
[2019-01-27 07:29] LABS: BASO# 0.03 X1000 (0.0-0.2); BASO% 0.4 % (0.0-0.8); EOS# 0.09 X1000 (0.0-0.7); EOS% 1.3 % (0.0-10.0); HEMATOCRIT 42.8 % (37.0-47.0); HEMOGLOBIN 14.6 g/dL (12.0-16.0); LYMPH# 1.53 X1000 (1.2-3.4); LYMPH% 21.3 % (20.5-51.1); MCH 30.9 PG (27-31); MCHC 34.1 g/dL (33-37); MCV 90.5 FL (81-99); MONO# 0.55 X1000 (0.11-0.59); MONO% 7.6 % (1.7-9.3); MPV 10.5 FL (7.4-10.4); NEUT# 4.99 X1000 (1.4-6.5); NEUT% 69.4 % (42.2-75.2); PLT 297 X1000 (130-400); RBC 4.73 XMIL (4.2-5.4); RDW 12.6 % (11.5-14.5); WBC 7.19 X1000 (4.8-10.8)
[2019-01-27 08:09] LABS: CHOLESTEROL 229 mg/dL (0-200); HDL 32 mg/dL (45-65); TRIGLYCERIDES 421 mg/dL (35-135)
[2019-01-27] MEDS ORDERED: ASPIRIN EC PO SCH (09:00)
[2019-01-27] MEDS ORDERED: ASPIRIN PO SCH (09:00)
[2019-01-27] MEDS ORDERED: CARDIZEM CD PO SCH (09:00)
[2019-01-27] MEDS ORDERED: PRINZIDE 20/12.5MG PO SCH (09:00)
[2019-01-27] MEDS ORDERED: IMDUR PO SCH (09:00)
--- NOTE | 2019-01-27 09:55 | EKG Report ---
Test Performed on : 01/27/2019 09:48:34 AM Test Reason : chest pain Blood Pressure : / mmHG Vent. Rate : 072 BPM Atrial Rate : 072 BPM P-R Int : 162 ms QRS Dur : 096 ms QT Int : 406 ms P-R-T Axes : 033 025 066 degrees QTc Int : 444 ms Normal sinus rhythm. Normal ECG When compared with ECG of 26-JAN-2019 14:58, (Unconfirmed) premature ventricular complexes. are no longer present Unconfirmed Result
[2019-01-27] MEDS ORDERED: LIPITOR PO SCH (10:15)
[2019-01-27 11:29] VITALS: BP 164/72
[2019-01-27] MEDS ORDERED: TOPROL XL PO SCH (12:15)
--- NOTE | 2019-01-27 13:00 | DISCHARGE SUMMARY ---
ADMISSION DATE: 01/26/2019 DISCHARGE DATE: 01/27/2019 DISCHARGE DIAGNOSES: 1. Chest pain, resolved. 2. Coronary artery disease, stable. 3. Diabetes mellitus type 2. 4. Hypertension. CONSULTATIONS: Dr. Roy from Cardiology. PROCEDURES: 1. Chest x-ray done on admission showed no evidence of acute disease. 2. Pulmonary arteriogram showed pleural based opacity in the right upper lobe describe of uncertain significance but no evidence of pulmonary embolism. HOSPITAL COURSE: This is a 53-year-old female with past medical history of coronary artery disease, hypertension, diabetes mellitus type 2, and COPD who presented to the emergency department complaining with 2-day history of having pressure-like chest pain. The patient was admitted to the hospital for observation. We have checked troponins 3 times. Patient evaluated by Cardiology and considering that she had a recent echo and stress test, they made a change in his medications. The patient is going to be seen in the office by his primary obstetrics gynecology md, Dr. Lazarus Henrández. She is being discharged in stable condition. DISCHARGE PHYSICAL EXAMINATION: Temperature 98.0 degrees, heart rate 75, respiratory rate 22, blood pressure 164/72, O2 saturation 97% on room air. General: This is a 53-year-old female lying in bed, in no acute distress. Cardiovascular: S1, S2 heard. No murmurs, gallops, or rubs. Regular rate and rhythm. Respiratory: Clear bilaterally to auscultation. No work of breathing or using accessory muscles. Abdomen: Soft, nontender to palpation. Bowel sounds present. No organomegaly. Extremities: No clubbing, cyanosis, or edema. Peripheral pulses present in both legs. Neurological: The patient is alert and oriented x3. Moves 4 extremities. DISCHARGE DISPOSITION: Home to self-care. LIST OF MEDICATIONS: 1. Lipitor 40 mg 1 tablet p.o. daily. 2. Toprol-XL 50 mg 1 tablet p.o. b.i.d. 3. Aspirin 81 mg 1 tablet p.o. daily. 4. Glipizide 10 mg 1 tablet p.o. daily. 5. Lisinopril/hydrochlorothiazide 20/12.5, 1 tablet p.o. twice daily. 6. Isosorbide mononitrate 1 tablet p.o. daily. 7. Metformin 850 mg 1 tablet p.o. daily. cc: Ambrocio Medina MD
[2019-01-27] MEDS ORDERED: FLU VACCINE IM ONE (14:14)
--- NOTE | 2019-01-27 19:31 | CARDIOLOGY CONSULTATION ---
DATE: 01/27/2019 REASON FOR CONSULTATION: A 53-year-old lady with history of coronary artery disease and COPD. She comes in with complaints of having palpitations and chest discomfort. HISTORY OF PRESENT ILLNESS: I had seen the patient recently in the office and she had been having increasing episodes of palpitations. Beta-blockers had not controlled it, and I had put her on Cardizem CD 180 mg a day and increased it to 240 mg a day. She is on lisinopril/hydrochlorothiazide which I had advised her to continue; however, with the increased dose of Cardizem she did not feel well. As she puts it, threw her in a loop. The palpitations increased. There was no dizziness or syncope associated with palpitations. She had chest discomfort. She came to the emergency room and was admitted. Electrocardiogram revealed no acute ST or T-wave changes to suggest ischemia. Cardiac enzymes were negative. She had a CT scan done as her D-dimers were elevated, which was negative for pulmonary embolism. In the past at a lower dose of beta-jarrett the symptoms were not controlled. Her thyroid profile in October was normal. REVIEW OF SYSTEMS: A 14-point review of system was done. GI system: There is no history of nausea, vomiting or diarrhea. There is no history of hematemesis or melena. Central nervous system: There is no focal weakness to suggest CVA or TIA. system: There is no dysuria or hematuria. PAST MEDICAL HISTORY: 1. Coronary artery disease, status post stent placement, drug-eluting stent to the circumflex artery in 2017. She underwent a cardiac catheterization on 12/21/2017, which revealed patent stent with no obvious restenosis. She underwent a stress test on 10/26/2018, which did not reveal any evidence of ischemia. Attenuation was noted. 2. Hypertension. 3. Palpitations. 4. Diabetes. 5. COPD. ALLERGIES: Erythromycin. HOME MEDICATIONS: 1. Aspirin 81 mg a day. 2. Lisinopril/hydrochlorothiazide 20/12.5. 3. Cardizem CD 240 mg a day. 4. Metformin 850 mg a day. 5. Glipizide 5 mg a day. 6. ProAir. 7. Fluticasone. SOCIAL HISTORY: She is a former smoker. Denies alcohol abuse. PHYSICAL EXAMINATION: Blood pressure was 160/72. Cardiovascular system: Normal jugular venous pressure. There is no thyromegaly. There is no carotid bruit. First and second heart sounds were heard. There was no S3 gallop. Respiratory system: Normal air entry. There are no crepitations or rhonchi. Abdomen: Soft, nontender. There was no guarding or rigidity. Bowel sounds were heard. Central nervous system: Alert, oriented, moving all 4 extremities. Examination of extremities revealed no pedal edema.HEENT: Atraumatic, normocephalic. Pupils were equal and reacting to light. LABORATORY DATA: Her electrolytes were unremarkable. Cardiac enzymes were negative. ASSESSMENT AND PLAN: Ms. Fletcher is a 53-year-old lady with history of coronary artery disease, stent placement to the circumflex in the past. Cardiac catheterization in 2018 revealed patent stent. Stress test earlier this year was unremarkable. She also has history of hypertension, diabetes, sleep apnea, obesity. She comes with complaints of having increasing palpitations as mentioned above, associated with chest discomfort. RECOMMENDATIONS: 1. She does not tolerate the increasing Cardizem dose, as she seems to have had side effects to that. We will try her on Toprol-XL 50 mg twice a day and I will see her back in the office in a couple of weeks. In addition, she is on lisinopril/hydrochlorothiazide. Would recommend continuing that. 2. Coronary artery disease, stable. We will continue her aspirin. 3. Hyperlipidemia. She is on atorvastatin 40. I have not made any changes. 4. Diabetes. She is on glipizide and metformin. Would recommend continuing medication. 5. She has COPD, is on inhalers. I have not made any changes. Thank you for the consult. We will follow hospital course. cc: Joe Roy MD
[2019-01-28] MEDS ORDERED: ASPIRIN PO SCH (09:00)
== END 2019-01-27 15:23 | disposition home or self-care (01) | DRG 313 ==
LOC: ED 14:49 → SUATTDRO 22:37 → 3N 22:37
PROVIDERS: ATTEND Internal Medicine

== ENCOUNTER 2019-03-31 11:46 | Inpatient (IN) ==
[2019-03-31 12:26] LABS: URINE SOURCE CLEAN CATCH
[2019-03-31 12:26] LABS: INR 0.96; PROTIME 12.9 Seconds (11.0-16.0)
[2019-03-31 12:27] LABS: PTT 27.7 Seconds (22.3-41.8)
[2019-03-31] MEDS ORDERED: DUONEB (A & A) INH ONE ×2 (12:27→12:44)
--- NOTE | 2019-03-31 12:30 | PROVIDER DOCUMENTATION ---
HPI-Respiratory General - General Chief Complaint: SEPSIS ALERT - D Stated Complaint: NEEDS O2 PER/DR Time Seen by Provider: 03/31/19 11:58 Source: patient Allergies/Adverse Reactions: Patient Allergies Allergy/AdvReac Type Severity Reaction Status Date / Time erythromycin base Allergy RASH Verified 03/31/19 11:53 Home Medications: Home Medication List Medication Instructions Recorded Confirmed Last Taken Type Aspirin [Aspirin EC] 1 tab PO DAILY 04/14/17 01/26/19 12/21/17 06:45 History Glipizide 10 mg PO DAILY 04/14/17 01/26/19 12/21/17 06:45 History Lisinopril/Hydrochlorothiazide 1 each PO BID 12/21/17 01/26/19 12/21/17 06:45 History [Lisinopril-Hctz 20-12.5 mg Tab] Isosorbide Mononitrate [Isosorbide 1 tab PO DAILY 01/26/19 01/26/19 Unknown History Mononitrate ER] Metformin HCl 1 tab PO BID 01/26/19 01/26/19 Unknown History ATORVAstatin [Lipitor] 40 mg PO DAILY #90 tab 01/27/19 Unknown Rx Metoprolol Succinate E.r. [Toprol 50 mg PO BID #60 tab 01/27/19 Unknown Rx Xl] - History of Present Illness-Resp Nature of Presenting Problem: Patient is a 53yo F who presents with complaints of productive cough w/ yellow sputum, chest tightness, and SOB x3 days. Reports she saw her PCP this morning for symptoms who gave her a steroid shot/Rocephin shot/neb tx and sent her to ED d/t "low oxygen." States she has hx of asthma and was previously using inhalers at home without improvement. Denies fever/chills, CP, n/v. Triage O2 saturation 96% on RA. Patient is 3-4 word sentences/mildly increased WOB/no retractions/no accessory muscle usage/no splinting/and no stridor noted upon examination. Quality of Pain: reports: tightness Severity in ED: reports: moderate Onset/Duration: reports: 3 days ago Timing: reports: still present, getting worse Exposure: reports: unknown cause Cough Quality/Degree: reports: moderate, productive cough Episode Frequency: occasional episodes Current Respiratory Medication Therapy: Initiated see nurses note Modifying Factors: improves with: nothing. worse with: exertion Associated Symptoms: reports: cough, shortness of breath, sore throat, wheezing. denies: fever/chills, nasal congestion Similar Symptoms Previously?: Yes Recently seen or treated by another doctor?: Yes (referred to ED from PCP's office) Review of Systems - Adult - REVIEW OF SYSTEMS - ADULT Constitutional: reports: no symptoms reported Ears, Nose, Mouth & Throat: reports: no symptoms reported Cardiovascular: reports: no symptoms reported Respiratory: reports: see HPI Genitourinary: reports: no symptoms reported Musculoskeletal: reports: no symptoms reported Integumentary: reports: no symptoms reported Neurological: reports: no symptoms reported Psychiatric: reports: no symptoms reported Endocrine: reports: no symptoms reported Hematologic/Lymphatic: reports: no symptoms reported Past History - Adult - PAST MEDICAL HISTORY-ADULT Review of Records: reports: Old Records Reviewed Major Childhood Illnesses: reports: denies history Cardiovascular: reports: cardiac disease, A-Fib, HTN, hyperlipidemia, other (HX OF SVT AND HAD ABLATION DONE) Respiratory: reports: asthma, COPD Gastrointestinal: reports: GERD Obstetrical/Gynecological: reports: denies history Genitourinary: reports: denies history Musculoskeletal: reports: denies history Neurological: reports: denies history Psychiatric: reports: denies history Endocrine/Immune: reports: Diabetes Other Conditions: reports: denies history - PRIOR SURGERIES/PROCEDURES Surgical/Procedure History: reports: cardiac stent, , tonsillectomy, other (cardiac ablation) - IMMUNIZATION STATUS Childhood Immunizations: See Nurse Assessment Flu Vaccine: See Nurse Assessment - FAMILY HISTORY Family History: other (MOTHER HAS CARDIAC DZ and FMHX of CVA) Physical Exam-General - PHYSICAL EXAM-ADULT Initial Vital Signs Reviewed: Yes - CONSTITUTIONAL General Appearance: alert, mild distress. negative: lethargic, slow to respond, obtunded - EYES Eyes: PERRL/EOMI, pink conjunctivae. negative: EOM palsy, scleral icterus - HEAD, EARS, NOSE, MOUTH & THROAT HENMT: normocephalic/atraumatic, moist mucous membranes, normal ENT inspection, TMs normal, pharynx normal. negative: angioedema - NECK Neck: full range of motion, supple, normal inspection - RESPIRATORY Respiratory: chest non-tender, no pleuratic chest pain, no accessory muscle use, accessory muscle use (mildly increased WOB), wheezing (expiratory; all lung rainey), increased rate (26). negative: crackles, rales, rhonchi, stridor, retr actions, splinting - CARDIOVASCULAR Cardiovascular: regular rate, rhythm - MUSCULOSKELETAL Back Exam: normal inspection Extremity: normal range of motion, non-tender, normal gait, normal inspection - SKIN Integumentary: normal color, warm/dry. negative: cyanosis, jaundice, pallor - NEUROLOGIC Neurologic: grossly normal. negative: abnormal gait, aphasia, EOM palsy - PSYCHIATRIC Psych/Mental Status: normal mood/affect, normal thought content, normal thought process, oriented x 3 Progress - PLAN OF CARE/RESULTS Progress/Plan/Lab Results: Vital Signs - 8 hr 03/31/19 11:48 03/31/19 12:08 03/31/19 12:27 Temperature 98.1 F Pulse Rate 100 H 96 H 116 H Respiratory Rate 26 H 20 19 Blood Pressure 184/81 131/101 179/90 O2 Sat by Pulse Oximetry 96 97 96 03/31/19 12:30 03/31/19 12:37 03/31/19 13:00 Temperature Pulse Rate 109 H 101 H 89 Respiratory Rate 22 15 24 Blood Pressure 145/76 145/76 177/84 O2 Sat by Pulse Oximetry 96 98 95 03/31/19 13:30 Temperature Pulse Rate 111 H Respiratory Rate 20 Blood Pressure 168/67 O2 Sat by Pulse Oximetry 96 Laboratory Results - last 24 hr 03/31/19 03/31/19 03/31/19 12:10 12:10 12:10 WBC 12.81 H RBC 4.61 Hgb 14.3 Hct 41.5 MCV 90.0 MCH 31.0 MCHC 34.5 RDW Std Deviation 13.2 Plt Count 304 MPV 9.8 Neut % (Auto) 90.4 H Lymph % (Auto) 6.[address] [place] % (Auto) 2.3 Eos % (Auto) 0.3 Baso % (Auto) 0.1 Neut # (Auto) 11.58 H Lymph # (Auto) 0.[address] [place] # (Auto) 0.29 Eos # (Auto) 0.04 Baso # (Auto) 0.01 PT 12.9 INR 0.96 PTT (Actin FS) 27.7 Specimen Type Sample Site pH pCO2 pO2 HCO3 Base Excess Oxyhemoglobin ABG O2 Sat (Calculated) ABG O2 Saturation ABG Carboxyhemoglobin ABG Methemoglobin Eulogio Test A-a O2 Difference Total Hemoglobin Lactate Blood Gas Modality FiO2 % Sodium 136 Potassium 4.7 Chloride 97 L Carbon Dioxide 23 L Anion Gap 16 BUN 13 Creatinine 0.8 Estimated GFR/1.73 m2 > 60 BUN/Creatinine Ratio 16 Glucose 328 H Calculated Osmolality 285 Calcium 8.6 L Total Bilirubin 0.36 AST 14 ALT 18 Alkaline Phosphatase 94 Creatine Kinase 165 Troponin T High Sens Ftj-N-Qrwyjuxrvyh Pept Total Protein 6.5 Albumin 3.5 Globulin 3.0 Albumin/Globulin Ratio 1.2 Plasma Lactate Urine Source Urine Color Urine Turbidity Urine pH Ur Specific [place] Urine Protein Ur Glucose (Stick) Ur Ketones (Stick) Urine Blood Urine Nitrite Urine Bilirubin Urobilinogen Dipstick Urine Leukocytes Urine WBC (Auto) Urine RBC (Auto) U Epithel Cells (Auto) Urine Bacteria (Auto) 03/31/19 03/31/19 03/31/19 12:10 12:10 12:10 WBC RBC Hgb Hct MCV MCH MCHC RDW Std Deviation Plt Count MPV Neut % (Auto) Lymph % (Auto) [place] % (Auto) Eos % (Auto) Baso % (Auto) Neut # (Auto) Lymph # (Auto) [place] # (Auto) Eos # (Auto) Baso # (Auto) PT INR PTT (Actin FS) Specimen Type Sample Site pH pCO2 pO2 HCO3 Base Excess Oxyhemoglobin ABG O2 Sat (Calculated) ABG O2 Saturation ABG Carboxyhemoglobin ABG Methemoglobin Eulogio Test A-a O2 Difference Total Hemoglobin Lactate Blood Gas Modality FiO2 % Sodium Potassium Chloride Carbon Dioxide Anion Gap BUN Creatinine Estimated GFR/1.73 m2 BUN/Creatinine Ratio Glucose Calculated Osmolality Calcium Total Bilirubin AST ALT Alkaline Phosphatase Creatine Kinase Troponin T High Sens 18 Fdr-M-Kibswwuaeyx Pept 193 H Total Protein Albumin Globulin Albumin/Globulin Ratio Plasma Lactate 2.9 H Urine Source Urine Color Urine Turbidity Urine pH Ur Specific [place] Urine Protein Ur Glucose (Stick) Ur Ketones (Stick) Urine Blood Urine Nitrite Urine Bilirubin Urobilinogen Dipstick Urine Leukocytes Urine WBC (Auto) Urine RBC (Auto) U Epithel Cells (Auto) Urine Bacteria (Auto) 03/31/19 03/31/19 12:19 14:05 WBC RBC Hgb Hct MCV MCH MCHC RDW Std Deviation Plt Count MPV Neut % (Auto) Lymph % (Auto) [place] % (Auto) Eos % (Auto) Baso % (Auto) Neut # (Auto) Lymph # (Auto) [place] # (Auto) Eos # (Auto) Baso # (Auto) PT INR PTT (Actin FS) Specimen Type ARTERIAL Sample Site R RADIAL pH 7.41 pCO2 38 pO2 65 HCO3 24.5 Base Excess -0.3 Oxyhemoglobin 91.3 L ABG O2 Sat (Calculated) 18.6 ABG O2 Saturation 96.4 ABG Carboxyhemoglobin 4.50 H ABG Methemoglobin 0.8 Eulogio Test YES A-a O2 Difference 37.0 Total Hemoglobin 14.5 Lactate 2.30 H Blood Gas Modality ROOM AIR FiO2 % 21.0 Sodium Potassium Chloride Carbon Dioxide Anion Gap BUN Creatinine Estimated GFR/1.73 m2 BUN/Creatinine Ratio Glucose Calculated Osmolality Calcium Total Bilirubin AST ALT Alkaline Phosphatase Creatine Kinase Troponin T High Sens Cue-N-Wftbsvggarv Pept Total Protein Albumin Globulin Albumin/Globulin Ratio Plasma Lactate Urine Source CLEAN CATCH Urine Color YELLOW Urine Turbidity CLEAR Urine pH 6.5 Ur Specific [place] 1.026 Urine Protein 100 A Ur Glucose (Stick) >1000 A Ur Ketones (Stick) NEGATIVE Urine Blood TRACE A Urine Nitrite NEGATIVE Urine Bilirubin NEGATIVE Urobilinogen Dipstick 3 A Urine Leukocytes NEGATIVE Urine WBC (Auto) <10 Urine RBC (Auto) <10 U Epithel Cells (Auto) <10 Urine Bacteria (Auto) NEGATIVE Orders Category Date Time Status Cardiac Monitoring DIRECTED Care 03/31/19 11:54 Active FSBS [Finger Stick Blood Sugar (ED)] DIRECTED Care 03/31/19 13:59 Active IV Insertion ORDERED Care 03/31/19 11:54 Completed Notify MD of + Sepsis Screen NOW Care 03/31/19 11:54 Active Notify Physician As Ordered Care 03/31/19 11:54 Active Nursing- Obtain EKG ONCE Care 03/31/19 12:27 Active CHEST-1 VIEW [RAD] Stat Exams 03/31/19 11:54 Completed ABG [RESP] Routine Lab 03/31/19 14:05 Completed BLOOD CULTURE [BLDCUL] Stat Lab 03/31/19 12:25 Results CBC WITH DIFF [HEME] Stat Lab 03/31/19 12:10 Completed CK PROFILE [SP CHEM] Stat Lab 03/31/19 12:10 Completed COMPREHENSIVE METABOLIC PANEL [CHEM] Stat Lab 03/31/19 12:10 Completed LACTATE, PLASMA [CHEM] Lab 03/31/19 15:00 Uncollected LACTATE, PLASMA [CHEM] Lab 03/31/19 18:00 Uncollected LACTATE, PLASMA [CHEM] Q3H Lab 03/31/19 12:10 Completed PRO B-NATRIURETIC PEPTIDE Stat Lab 03/31/19 12:10 Completed PROTIME WITH INR [COAG] Stat Lab 03/31/19 12:10 Completed PTT [COAG] Stat Lab 03/31/19 12:10 Completed TROPONIN T HIGH SENSITIVITY Stat Lab 03/31/19 12:10 Completed URINALYSIS W/POSS RFLX CULT [URINALYSIS] Stat Lab 03/31/19 12:19 Completed 0.9% Sodium Chloride Inj [Ns] 1,000 ml Med 03/31/19 13:21 Discontinued IV 999 mls/hr Albuterol 2.5MG/Ipratrop 0.5MG [Duoneb (A & A)] Med 03/31/19 12:27 Discontinued 3 ml INH NOW ONE Albuterol 2.5MG/Ipratrop 0.5MG [Duoneb (A & A)] Med 03/31/19 12:44 Discontinued 3 ml INH NOW ONE Doxycycline Med 03/31/19 13:21 Discontinued 100 mg PO NOW ONE Aerosol Treatments Routine Oth 03/31/19 12:27 Completed Aerosol Treatments Routine Oth 03/31/19 12:44 Completed Aerosol Treatments Stat Oth 03/31/19 12:27 Completed Aerosol Treatments Stat Oth 03/31/19 12:44 Completed Oxygen Device Stat Oth 03/31/19 11:54 Completed EKG [EKG] Stat Ther 03/31/19 12:27 Draft Result Diagrams: 03/31/19 12:10 03/31/19 12:10 - XRAY 1 XRAY: Bilateral XRAY Study: Chest Impression: See EMR Report ([facility] - [address], [address], [place] [address] [facility] - [address] [place] [address] Department of Imaging Patient: TATUM MIRANDA Date: 03/31/19MR#: [id number] : 1965ADM Status: PRE ERAcct#: [id number] Age/Sex: 53/FRoom/Bed: Loc: ED Ordering Physician: Crescencio Schulz MD Family Physician: Leandro Dempsey Jr, MD Reason for Procedure: sob ___ Signed EXAM: CHEST-1 VIEW 03/31/2019 HISTORY: sob TECHNIQUE: Erect AP portable at 1221 COMMENT: The inspiration is suboptimal. There is some ill-defined opacity in the right lower lobe which was not present on 01/26/2019. IMPRESSION: Atelectasis versus pneumonia right lower lobe. Electronically signed by Kentrell Coleman 03/31/2019 12:34 PM 03/31/19 1234 Interpreting Physician: Kentrell Coleman MD Dictated Date/Time: 03/31/19 1234 cc: Crescencio Schulz MD; Leandro Dempsey Jr, MD) - CONSULTS/PCP/HOSPITALIST Notification #1 *Consult/PCP/Hospitalist*: SANDRA Tyler Time Discussed: 14:40 Reason/Comments: RLL; SOB; SIRS criteria Consult Disposition: Admit Departure - Departure Date of Disposition Decision: 03/31/19 Time of Disposition Decision: 14:42 DIAGNOSIS: Shortness of breath, Elevated lactic acid level, SIRS (systemic inflammatory response syndrome) Right lower lobe pneumonia Qualifiers: Pneumonia type: due to unspecified organism Qualified Code(s): J18.1 - Lobar pneumonia, unspecified organism Disposition: ADMITTED INPATIENT 09 Certified Medical Emergency: Emergent Condition: Stable - Critical Care Note This patient required my direct & personal management of CC.: No Attestation - Physician/ MIGUEL Attestation Patient care was provided by Advanced Practice Provider:: Yes Advanced Practice Provider:: Valerie Celis Advanced Practice Provider documentation review:: The Mid-level provider documentation, treatment plan and medical decision making was reviewed by the physician who agrees with all treatment and medical decision making by the [facility]. The physician spent face to face time with patient:: No Advanced Practice Provider documentation review:: Supervising physician onsite and consulted in the evaluation and care of this patient. The physician did not have a face to face encounter with the patient.
[2019-03-31 12:35] LABS: BASO# 0.01 X1000 (0.0-0.2); BASO% 0.1 % (0.0-0.8); EOS# 0.04 X1000 (0.0-0.7); EOS% 0.3 % (0.0-10.0); HEMATOCRIT 41.5 % (37.0-47.0); HEMOGLOBIN 14.3 g/dL (12.0-16.0); LYMPH# 0.89 X1000 (1.2-3.4); LYMPH% 6.9 % (20.5-51.1); MCHC 34.5 g/dL (33-37); MONO# 0.29 X1000 (0.11-0.59); MONO% 2.3 % (1.7-9.3); MPV 9.8 FL (7.4-10.4); NEUT# 11.58 X1000 (1.4-6.5); NEUT% 90.4 % (42.2-75.2); PLT 304 X1000 (130-400); RBC 4.61 XMIL (4.2-5.4); RDW 13.2 % (11.5-14.5); WBC 12.81 X1000 (4.8-10.8)
--- NOTE | 2019-03-31 12:37 | Diag Imaging Result Doc PS360 ---
EXAM: CHEST-1 VIEW 03/31/2019 HISTORY: sob TECHNIQUE: Erect AP portable at 1221 COMMENT: The inspiration is suboptimal. There is some ill-defined opacity in the right lower lobe which was not present on 01/26/2019. IMPRESSION: Atelectasis versus pneumonia right lower lobe. Electronically signed by Kentrell Coleman 03/31/2019 12:34 PM
[2019-03-31 12:41] LABS: AGAP 16; ALB/GLOB RATIO 1.2; ALBUMIN 3.5 g/dL (3.5-5.0); ALKALINE PHOSPHATASE 94 U/L (32-104); BUN 13 mg/dL (8-22); CALCIUM 8.6 mg/dL (8.8-10.2); CHLORIDE 97 mmol/L (98-107); CK PROFILE 165 U/L (24-173); COSMO 285; CREATININE 0.8 mg/dL (0.5-0.9); ESTIMATED GFR > 60; GLUCOSE 328 mg/dL (70-104); GOT 14 U/L (10-30); GPT 18 U/L (10-36); POTASSIUM 4.7 mmol/L (3.5-5.1); SODIUM 136 mmol/L (136-145); TCO2 23 mmol/L (25-35); TOTAL BILIRUBIN 0.36 mg/dL (0.20-1.00); TOTAL PROTEIN 6.5 g/dL (6.3-8.3)
[2019-03-31 12:47] LABS: BILIRUBIN URINE NEGATIVE (NEGATIVE); BLOOD URINE TRACE (NEGATIVE); COLOR YELLOW; GLUCOSE URINE >1000 mg/dL (NEGATIVE); KETONE URINE NEGATIVE (NEGATIVE); LEUKOCYTES URINE NEGATIVE (NEGATIVE); NITRITE URINE NEGATIVE (NEGATIVE); PH URINE 6.5; PROTEIN URINE 100 mg/dL (NEGATIVE); SP GRAVITY URINE 1.026; TURBIDITY URINE CLEAR (CLEAR); UROBILINOGEN URINE 3 mg/dL (NORMAL)
[2019-03-31 12:48] LABS: UR EPITHELIAL CELLS <10 /HPF (<10); URINE BACTERIA NEGATIVE /HPF; URINE RBC <10 /HPF (<10); URINE WBC <10 /HPF (<10)
[2019-03-31] MEDS ORDERED: DOXYCYCLINE PO ONE (13:21)
[2019-03-31] MEDS ORDERED: NS 1,000 ML IV ONE (13:21)
--- NOTE | 2019-03-31 14:09 | EKG Report ---
Test Performed on : 03/31/2019 12:51:10 PM Test Reason : SOB Blood Pressure : / mmHG Vent. Rate : 094 BPM Atrial Rate : 094 BPM P-R Int : 138 ms QRS Dur : 088 ms QT Int : 362 ms P-R-T Axes : 006 013 071 degrees QTc Int : 452 ms Normal sinus rhythm. Cannot rule out Anterior infarct , age undetermined Abnormal ECG When compared with ECG of 27-JAN-2019 09:48, No significant change was found Unconfirmed Result
[2019-03-31 14:15] LABS: ALLEN TEST YES; BE -0.3 mmoll (-3.0-3.0); BLOOD TYPE ARTERIAL; HCO3-(ACT) 24.5 mmoll (20.0-26.0); METHB 0.8 % (0.0-1.5); O2(CT) 18.6 mL/dL (15.0-23.0); O2HB 91.3 % (95.0-99.0); PCO2(98.6) 38 mmHg (35-45); PO2(98.6) 65 mmHg (60-100); SAMPLE BLOOD; SAO2 96.4 % (95.0-100.0); THB 14.5 g/dL (11.5-17.4); pH(98.6) 7.41 (7.35-7.45)
[2019-03-31 14:16] LABS: MODALITY ROOM AIR
--- NOTE | 2019-03-31 14:43 | ED EKG INTERP ---
This chart was entered by Milena Ferrer Scribe, acting as scribe for Valerie Celis CRNP. EKG Interpretation - EKG Time of EKG reading by physician:: 12:51 EKG Read and Signed by:: Crescencio Schulz EKG Interpretation (*Must complete 3 of following elements*): Normal Rate: 94 Rhythm: NSR Attestation - Physician/ MIGUEL Attestation Patient care was provided by Advanced Practice Provider:: Yes Advanced Practice Provider:: Valerie Celis Advanced Practice Provider documentation review:: The Mid-level provider documentation, treatment plan and medical decision making was reviewed by the physician who agrees with all treatment and medical decision making by the MLP. The physician spent face to face time with patient:: No Advanced Practice Provider documentation review:: Supervising physician onsite and consulted in the evaluation and care of this patient. The physician did not have a face to face encounter with the patient. This chart was documented by the indicated scribe, (Milena Ferrer Scribe) and accurately reflects the services I performed and decisions made by Lalita banuelos Jenna A., CRNP, as attested by the provider's signature.
[2019-03-31] MEDS ORDERED: ZOFRAN IV PRN (19:10)
[2019-03-31] MEDS ORDERED: NS 1,000 ML IV SCH (19:10)
[2019-03-31] MEDS ORDERED: DUONEB (A & A) INH PRN (19:10)
--- NOTE | 2019-03-31 19:15 | HISTORY AND PHYSICAL ---
ADDENDUM: I have seen and examined Ms. Fletcher today in the emergency room. Ms Fletcher has history of COPD, obstructive sleep apnea, who has been coming down with respiratory symptoms, went to see her primary care doctor (Dr. Mireles) who treated her in his office with nebulization and shot of steroid and Rocephin but she remained hypoxemic so she was advised to come to the emergency room where she was initially treated but she continues to need management so she is going to be admitted. Physical exam is remarkable for her weight 36.8. She has a very short neck. Her lungs air entry was bilaterally reduced. There is end expiratory wheezing in both lung rainey.Cardiovascular: Regular rate and rhythm. Abdomen: Distended but nontender, bowel sounds present. Extremities: No pedal edema. LABORATORY DATA: Has also been reviewed. No major abnormalities detected. A chest x-ray did show atelectasis versus pneumonia in the right lower lobe. ASSESSMENT: 1. Acute hypoxemic respiratory failure, patient saturation is down to 93. I think that is fairly acceptable for a chronic obstructive pulmonary disease.. We going to continue to monitor. 2. Chronic obstructive pulmonary disease exacerbation. Will continue with the steroids, antibiotics and bronchodilation therapy. 3. Questionable right lower lobe atelectasis versus pneumonia. Will continue with antibiotics and incentive spirometer. 4. Obstructive sleep apnea. Patient will be put on CPAP especially at night. Please refer to the details of the history and physical that has been dictated by the WOMEN NURSE in the chart. cc: Alejandro Rapp MD MTDD
[2019-03-31] MEDS ORDERED: APRESOLINE IV ONE (19:20)
[2019-03-31] MEDS: DUONEB (A & A) INH SCH ×2 (19:42→23:05)
--- NOTE | 2019-03-31 20:13 | HISTORY AND PHYSICAL ---
PRIMARY CARE PROVIDER: Dr. Dempsey. CHIEF COMPLAINT: Shortness of breath. HPI: Ms Fletcher is a 53-year-old female who carries a past medical history of COPD, coronary artery disease, hypertension, diabetes mellitus type 2, dyslipidemia and sleep apnea who comes to the ED complaining of chills, low-grade fever, cough with yellow-green sputum, wheezes. She reports that she had the flu at the end of February. She was on Tamiflu. She got caught out in the rain sometime last week for an extended period of time and since then she has progressively continued to feel short of breath. This morning she went to see her PCP where she got a shot of Rocephin and a breathing treatment and had low oxygen levels and she was using her home inhaler as well without any improvement so she came to the ED to be evaluated. She was found to be in a COPD exacerbation and a right lower lobe pneumonia was ruled out for sepsis. Will continue with further evaluation and treatment. PAST MEDICAL HISTORY: Per HPI. PAST SURGICAL HISTORY: Coronary stenting, tonsillectomy, tubes in the ears, cardiac ablation. ALLERGIES: Allergic to erythromycin. MEDICATIONS: Home medications are being compiled. SOCIAL HISTORY: Former smoker. No alcohol, illicit drug use. FAMILY HISTORY: Positive for coronary disease in mother. REVIEW OF SYSTEMS: Twelve-point review of systems completely negative except for those mentioned in HPI. No cardiac type chest pain just chest tightness in the lungs. No nausea, vomiting, diarrhea, dysuria. PHYSICAL EXAMINATION: VITAL SIGNS: Temperature is 98.1 degrees, heart rate 91, respirations 26, blood pressure is 160/67, O2 is 93% on room air. GENERAL: Ms. Fletcher is a 53-year-old female who is sitting up in the bed in no acute distress. HEENT: Atraumatic, normocephalic. PERRL. NECK: Supple. Trachea midline. CARDIOVASCULAR: S1, S2 appreciated. No murmurs, gallops, rubs noted. RESPIRATORY: Lung sounds expiratory wheezes bilaterally. Scattered rhonchi. GI: Obese, soft, nontender, nondistended. Positive bowel sounds 4 quads. Lower extremities no edema. NEURO: No focal deficits noted. SKIN: Warm, dry, and intact. LABORATORY DATA: Chest x-ray, atelectasis versus right lower lobe pneumonia. EKG normal sinus rhythm 94 beats per minute. White count 12, hemoglobin and hematocrit 14 and 41, platelet count of 304,000. Sodium 136, potassium 4.7, BUN 13, creatinine 0.8, blood glucose is 328, troponin 18. ProBNP 193. Urinalysis negative for bacteria, negative for nitrites. ASSESSMENT AND PLAN: 1. Chronic obstructive pulmonary disease exacerbation. We will continue with supplemental O2, bronchodilators and aggressive pulmonary toilet, IV steroids. 2. Right lower lobe pneumonia. We will continue with supplemental O2, bronchodilators, IV antibiotics. 3. Coronary artery disease. Will continue home medications when verified. 4. Hypertension. Will continue home medications when verified. 5. Diabetes mellitus type 2. We will place her on sliding scale with pattern blood sugars. 6. Dyslipidemia. Will continue Lipitor when verified. 7. Further recommendation to follow physician evaluation, laboratory and diagnostic data. Dictated by SANDRA Damon for Alejandro Rapp MD cc: MD Dr. Ke Butts
[2019-03-31] MEDS: SOLU-MEDROL IV SCH (20:16)
[2019-03-31] MEDS: ROCEPHIN 1 GM in NS 50 ML IV SCH (20:25)
[2019-03-31] MEDS: LEVAQUIN 500 MG in NS 100 ML IV SCH (21:31)
[2019-03-31] MEDS: HUMALOG SUBQ SCH (21:32)
[2019-04-01] MEDS: SOLU-MEDROL IV SCH ×3 (00:53→19:56)
[2019-04-01] MEDS: DUONEB (A & A) INH SCH ×5 (02:48→23:06)
[2019-04-01 05:49] LABS: BASO# 0.02 X1000 (0.0-0.2); BASO% 0.1 % (0.0-0.8); HEMATOCRIT 40.7 % (37.0-47.0); HEMOGLOBIN 13.7 g/dL (12.0-16.0); IMM GRAN# 0.09 X1000 (0.0-0.04); IMM GRAN% 0.5 % (0.0-0.5); LYMPH# 0.88 X1000 (1.2-3.4); MCH 30.2 PG (27-31); MCHC 33.7 g/dL (33-37); MCV 89.8 FL (81-99); MONO# 0.17 X1000 (0.11-0.59); MPV 10.1 FL (7.4-10.4); NEUT# 16.32 X1000 (1.4-6.5); NEUT% 93.4 % (42.2-75.2); PLT 324 X1000 (130-400); RBC 4.53 XMIL (4.2-5.4); RDW 13.2 % (11.5-14.5); WBC 17.48 X1000 (4.8-10.8)
[2019-04-01] MEDS: HUMALOG SUBQ SCH ×4 (06:13→20:14)
[2019-04-01 06:22] LABS: MONO 2 % (1-9); SEGS 98 % (42-75)
[2019-04-01 06:27] LABS: AGAP 14; ALB/GLOB RATIO 1.2; ALBUMIN 3.6 g/dL (3.5-5.0); ALKALINE PHOSPHATASE 89 U/L (32-104); BUN 15 mg/dL (8-22); CALCIUM 8.7 mg/dL (8.8-10.2); CHLORIDE 102 mmol/L (98-107); COSMO 290; CREATININE 0.7 mg/dL (0.5-0.9); ESTIMATED GFR > 60; GLUCOSE 270 mg/dL (70-104); GOT 13 U/L (10-30); GPT 16 U/L (10-36); POTASSIUM 4.4 mmol/L (3.5-5.1); SODIUM 140 mmol/L (136-145); TCO2 24 mmol/L (25-35); TOTAL BILIRUBIN 0.25 mg/dL (0.20-1.00); TOTAL PROTEIN 6.5 g/dL (6.3-8.3)
--- NOTE | 2019-04-01 08:39 | Diag Imaging Result Doc PS360 ---
EXAM: CHEST-2 VIEWS INDICATION: short of breath TECHNIQUE: 2 views COMPARISON: 03/31/2019 FINDINGS: The right lower lobe opacity seen on the previous study has largely resolved suggesting resolving atelectasis. No new consolidation is identified. Cardiac silhouette is stable. IMPRESSION: Gross resolution of the vague opacity at the right lung base seen previously. Electronically signed by Pawel Carrillo 04/01/2019 8:37 AM
[2019-04-01] MEDS: TYLENOL PO PRN ×3 (09:45→21:39)
[2019-04-01 11:56] LABS: HEMOGLOBIN A1C 7.6 % (4.8-6.0)
--- NOTE | 2019-04-01 14:01 | PROGRESS NOTE ---
DATE: 04/01/2019 SUBJECTIVE: This morning Ms. Fletcher refers to be doing well. Still has some cough and baseline wheezing. OBJECTIVE: Vital signs: Blood pressure is 151/66, pulse of 86, respirations 20, temperature 97.9 degrees. General: Ms. Clarke is a 53-year-old female. She is in bed, does not seems to be in any distress. HEENT: Mucosa is pink and moist. Anicteric. Acyanotic. Neck: Supple. Chest: Good air entry bilateral. A few end-expiratory wheezing is noted. Cardiovascular: Regular rate and rhythm. No murmurs, no rubs, no gallops. GI: Abdomen is soft, nontender. Bowel sounds present. Extremities: No pedal edema. ARBORIST REPRESENTATIVE: Patient is awake, alert, oriented. There is no focal deficit. LABORATORY DATA: WBC is 17.48. I think part of it is because of steroids. Other cell counts normal. Chemistry is completely within normal range. Glucose is 277. Blood cultures are still pending. A repeat chest x-ray this morning showed gross resolution of the vague opacity at the right lung base seen previously. ASSESSMENT: 1. Acute hypoxemic respiratory failure, improving. 2. COPD Exacerbation. Patient is on standard of care. 3. Right lower lobe infiltrate concerning for atelectasis versus pneumonia. The patient is on incentive spirometer and antimicrobials. This morning, a repeat chest x-ray seems to suggest improvement. 4. Obstructive sleep apnea. Patient uses CPAP. 5. Diabetes mellitus. We will continue with glipizide and insulin regimen. 6. History of coronary artery disease. We will start the patient back on her home medications. cc: Alejandro Rapp MD [facility]
[2019-04-01] MEDS: ROCEPHIN 1 GM in NS 50 ML IV SCH (18:36)
[2019-04-01] MEDS: LEVAQUIN 500 MG in NS 100 ML IV SCH (19:56)
[2019-04-01] MEDS: PRINZIDE 20/12.5MG PO SCH (20:07)
[2019-04-01] MEDS: TOPROL XL PO SCH (20:07)
[2019-04-02] MEDS: DUONEB (A & A) INH SCH ×6 (03:03→23:55)
[2019-04-02 05:46] LABS: HEMATOCRIT 38.4 % (37.0-47.0); HEMOGLOBIN 12.6 g/dL (12.0-16.0); MCH 30.4 PG (27-31); MCHC 32.8 g/dL (33-37); MCV 92.5 FL (81-99); MPV 10.1 FL (7.4-10.4); RBC 4.15 XMIL (4.2-5.4); RDW 13.8 % (11.5-14.5); WBC 19.62 X1000 (4.8-10.8)
[2019-04-02 06:09] LABS: AGAP 13; ALBUMIN 3.1 g/dL (3.5-5.0); BUN 20 mg/dL (8-22); CALCIUM 8.6 mg/dL (8.8-10.2); CHLORIDE 102 mmol/L (98-107); COSMO 289; CREATININE 0.8 mg/dL (0.5-0.9); ESTIMATED GFR > 60; GLUCOSE 327 mg/dL (70-104); PHOSPHORUS 4.2 mg/dL (2.7-4.5); POTASSIUM 4.8 mmol/L (3.5-5.1); SODIUM 137 mmol/L (136-145); TCO2 22 mmol/L (25-35)
[2019-04-02] MEDS: GLUCOTROL PO SCH (06:20)
[2019-04-02] MEDS: ASPIRIN EC PO SCH (08:47)
[2019-04-02] MEDS: IMDUR PO SCH (08:47)
[2019-04-02] MEDS: SOLU-MEDROL IV SCH ×2 (08:47→20:06)
[2019-04-02] MEDS: TOPROL XL PO SCH ×2 (08:48→20:06)
[2019-04-02] MEDS: PRINZIDE 20/12.5MG PO SCH ×2 (08:48→20:05)
[2019-04-02] MEDS: LIPITOR PO SCH (08:48)
[2019-04-02] MEDS ORDERED: LANTUS INSULIN SUBQ SCH (09:00)
[2019-04-02] MEDS: HUMALOG SUBQ SCH ×3 (10:59→20:05)
--- NOTE | 2019-04-02 11:51 | PROGRESS NOTE ---
DATE: 04/02/2019 SUBJECTIVE: This morning, Ms. Fletcher refers to be doing well. No new complaints. Still has some residual cough and shortness of breath. OBJECTIVE: Vital Signs: Blood pressure is 143/64, pulse of 78, respirations are 20, temperature is 97.5 degrees. General Examination: Ms. Fletcher is a 53-year-old, female. She is in bed. No distress. HEENT: Mucosa is pink and moist. Anicteric. Acyanotic. Neck: Supple, short. Chest: Air entry is bilaterally reduced. There is still some diffuse end-expiratory wheezing. Cardiovascular: Regular rate and rhythm. No murmurs, no rubs, no gallops. GI: Abdomen is soft, nontender. Bowel sounds are present. There is no hepatosplenomegaly. Extremities: No pedal edema. Distal pulses present. LMSW: The patient is awake, alert, oriented. There is no focal deficit. Laboratory Data: WBC is 19.65, hemoglobin is 12.6, platelet count of 313,000. Chemistry is also reviewed. Glucose is 327. Rest of chemistry is unremarkable. So far, blood cultures have been 48 hours negative. ASSESSMENT: 1. Acute hypoxemic respiratory failure. Patient continues to be on supplemental oxygen. 2. Chronic obstructive pulmonary disease exacerbation. The patient is on steroids, antibiotics, and bronchodilation therapy. 3. Right lower lobe infiltrate, concerning for atelectasis versus pneumonia. Patient is on antimicrobial therapy and is also on incentive spirometer. 4. Obstructive sleep apnea. Patient uses CPAP. 5. Diabetes mellitus. We will continue with the current regimen. 6. History of coronary artery disease. The patient is on aspirin, statin and metoprolol. cc: Alejandro Rapp MD [facility]
[2019-04-02] MEDS: LEVAQUIN 500 MG in NS 100 ML IV SCH (19:44)
[2019-04-02] MEDS: ROCEPHIN 1 GM in NS 50 ML IV SCH (19:44)
[2019-04-03] MEDS: DUONEB (A & A) INH SCH ×6 (04:30→23:57)
[2019-04-03 05:22] LABS: HEMATOCRIT 38.9 % (37.0-47.0); HEMOGLOBIN 12.9 g/dL (12.0-16.0); MCH 30.6 PG (27-31); MCHC 33.2 g/dL (33-37); MCV 92.4 FL (81-99); MPV 10.1 FL (7.4-10.4); RBC 4.21 XMIL (4.2-5.4); RDW 13.6 % (11.5-14.5); WBC 12.53 X1000 (4.8-10.8)
[2019-04-03 05:45] LABS: AGAP 9; ALBUMIN 3.2 g/dL (3.5-5.0); BUN 23 mg/dL (8-22); CALCIUM 8.6 mg/dL (8.8-10.2); CHLORIDE 99 mmol/L (98-107); COSMO 284; CREATININE 0.9 mg/dL (0.5-0.9); ESTIMATED GFR > 60; GLUCOSE 323 mg/dL (70-104); PHOSPHORUS 4.2 mg/dL (2.7-4.5); SODIUM 134 mmol/L (136-145); TCO2 26 mmol/L (25-35)
[2019-04-03] MEDS: HUMALOG SUBQ SCH ×5 (06:45→20:26)
[2019-04-03] MEDS: GLUCOTROL PO SCH (06:46)
--- NOTE | 2019-04-03 08:52 | Diag Imaging Result Doc PS360 ---
EXAM: CHEST-2 VIEWS 04/03/2019 HISTORY: hypoxia TECHNIQUE: Two views the chest COMMENT: There is no evidence of acute cardiac or pulmonary disease. Compared to 04/01/2019 there has been no significant change in the appearance of the chest. IMPRESSION: No evidence of acute disease. Electronically signed by Kentrell Coleman 04/03/2019 8:49 AM
[2019-04-03] MEDS: ASPIRIN EC PO SCH (09:39)
[2019-04-03] MEDS: PRINZIDE 20/12.5MG PO SCH ×2 (09:39→20:19)
[2019-04-03] MEDS: IMDUR PO SCH (09:39)
[2019-04-03] MEDS: SOLU-MEDROL IV SCH ×2 (09:39→20:18)
[2019-04-03] MEDS: TOPROL XL PO SCH ×2 (09:39→20:19)
[2019-04-03] MEDS: LIPITOR PO SCH (09:40)
[2019-04-03] MEDS: LANTUS INSULIN SUBQ SCH (10:44)
[2019-04-03] MEDS: TYLENOL PO PRN (10:51)
--- NOTE | 2019-04-03 18:27 | PROGRESS NOTE ---
DATE: 04/03/2019 SUBJECTIVE: Today, Ms. Fletcher refers to be doing well. She denies any new complaints. She still has some wheezing and cough. OBJECTIVE: Vital signs: Blood pressure is 153/72, pulse of 60, respirations 20, temperature is 97.8 degrees. General: Ms. Fletcher is a 53-year-old female. She is in bed. She is morbidly obese. BMI is 45.9. She is not in any cardiopulmonary distress. HEENT: Mucosa is pink and moist. Anicteric. Acyanotic. Neck: Supple. No JVD. Respiratory: There is good air entry bilaterally. There is still diffuse end-expiratory wheezing bilaterally. Cardiovascular: Regular rate and rhythm. No murmurs, no rubs, no gallops. GI: Abdomen is soft and nontender. Bowel sounds present. There is no hepatosplenomegaly. Extremities: No pedal edema. Distal pulses present. BEHAVIORAL MEDICAL DIRECTOR: Patient is awake, alert, oriented. There is no focal deficit. LABORATORY DATA: WBC is 12.53, hemoglobin is 12.9, platelet count of 283,000. Chemistry is also reviewed. Glucose was 144 today. CURRENT MEDICATIONS: Have all been reviewed. No changes. ASSESSMENT: 1. Acute hypoxemic respiratory failure. Patient continues to be on supplemental oxygen. 2. Chronic obstructive pulmonary disease exacerbation. Patient continues to be remarkably bronchospastic. She is still on steroids, antibiotics, bronchodilation therapy. We will get Pulmonary Medicine to evaluate her today and give us some more recommendations. 3. Right lower lobe infiltrate, concerning for atelectasis versus pneumonia. We will continue with incentive spirometer and antimicrobial therapy. 4. Obstructive sleep apnea. Patient uses CPAP. 5. Uncontrolled diabetes mellitus. Presenting A1c 7.6. Glucose has been slightly uncontrolled due to steroid use. We will continue to titrate her insulin needs. 6. History of coronary artery disease. Patient is on aspirin, statin, metoprolol, and Imdur. So, in general, I think Ms. Fletcher is fairly stable. She has been in the hospital for the past 3 days. She still sounds pretty bronchospastic, so we will get Pulmonary Medicine to evaluate her today. cc: Alejandro Rapp MD
[2019-04-03] MEDS: LEVAQUIN 500 MG in NS 100 ML IV SCH (18:45)
[2019-04-03] MEDS: ROCEPHIN 1 GM in NS 50 ML IV SCH (20:18)
--- NOTE | 2019-04-03 22:10 | PULMONOLOGY CONSULTATION ---
DATE: 04/03/2019 REASON FOR CONSULTATION: COPD. HISTORY OF PRESENT ILLNESS: Ms. Fletcher is a 53-year-old white female with a greater than 30 pack- year history for tobacco, COPD, obesity, and diabetes mellitus, who was treated for the flu after [place]. The patient reports she tested positive for the flu and received a steroid and antibiotic course. She initially improved, but subsequently developed increased cough, increasing shortness of breath with increased sputum production. She was evaluated by her primary care physician who noted her oxygen saturation was low in the office and recommended an ER evaluation. Initial chest x-ray revealed infiltrate/atelectasis at the right lung base, but followup chest x- ray today reveals no evidence of acute disease. PAST MEDICAL HISTORY: 1. Chronic obstructive pulmonary disease. No recent pulmonary function studies available for review. 2. Coronary artery disease, with prior stenting. 3. Hypertension. 4. History of atrial fibrillation. 5. Diabetes mellitus. 6. Obstructive sleep apnea, on CPAP device. 7. Status post tonsillectomy and adenoidectomy. SOCIAL HISTORY: The patient works for a [employer]. Prior tobacco use as per above. No alcohol use. FAMILY HISTORY: Positive for heart disease. REVIEW OF SYSTEMS: As noted in the HPI. PHYSICAL EXAMINATION: General: Reveals a 53-year-old white female resting comfortably and in no distress. She has a slightly wet cough. She has a slightly nasal tone to her voice. Vital signs: Blood pressure 153/72, heart rate 68, respiratory rate 20, oxygen saturation 98% on 2 L per nasal cannula. HEENT: Pupils are equal and reactive. Oropharynx appears clear. No obvious postnasal drip. No obvious maxillary or frontal sinus tenderness. Neck: Appears supple. Chest: Reveals prolonged expiratory phase with wheezing and rhonchi. Cardiac: S1, S2. Abdomen: Obese and soft. Extremities: Reveal trace edema. LABORATORIES: White blood count 12.53, hemoglobin 12.9, platelet count 283,000. Sodium 134, potassium 5.0, chloride 99, bicarbonate 26, BUN 23, creatinine 0.9, glucose 283. IMPRESSION: A 53-year-old with: 1. Acute chronic obstructive pulmonary disease exacerbation. 2. Acute bronchitis. 3. Morbid obesity. 4. Steroid-induced hyperglycemia. 5. Obstructive sleep apnea with good compliance to her device. 6. History of asthma "all of her life". DISCUSSION: A 53-year-old with problems outlined above. By her description, she had influenza which will make her prone for a post influenzal bronchitis/exacerbation of her chronic obstructive pulmonary disease. She likely had significant epithelial injury with the influenza, which may make it more difficult to clear an exacerbation. Clinically, she reports she is improving. RECOMMENDATIONS: 1. Continue bronchodilators as you are doing. 2. Continue current antibiotic regimen. 3. Encourage patient to ambulate as tolerated. 4. Obtain sinus x-rays. She denies sinus symptoms, but does have a nasal quality to her voice. 5. Consider repeat CT scan of the thorax. The patient did have a CT scan in January, which revealed a nonspecific pleural-based density in the right upper lobe. Although it did not particularly look malignant, would consider repeating a scan to re-evaluate that area. cc: John Reyes MD
[2019-04-04] MEDS: DUONEB (A & A) INH SCH ×6 (03:32→23:13)
[2019-04-04] MEDS: GLUCOTROL PO SCH (06:20)
[2019-04-04] MEDS: HUMALOG SUBQ SCH ×4 (06:21→21:32)
[2019-04-04] MEDS: SOLU-MEDROL IV SCH ×2 (09:01→21:35)
[2019-04-04] MEDS: IMDUR PO SCH (09:01)
[2019-04-04] MEDS: ASPIRIN EC PO SCH (09:01)
[2019-04-04] MEDS: PRINZIDE 20/12.5MG PO SCH ×2 (09:01→21:37)
[2019-04-04] MEDS: LIPITOR PO SCH (09:01)
[2019-04-04] MEDS: TOPROL XL PO SCH ×2 (09:01→21:37)
[2019-04-04] MEDS: LANTUS INSULIN SUBQ SCH (09:02)
--- NOTE | 2019-04-04 09:33 | Diag Imaging Result Doc PS360 ---
EXAM: SINUSES HISTORY: sinus congestion TECHNIQUE: Three views COMPARISON: None. FINDINGS: No sinus opacification. No air-fluid levels. No mucosal thickening. IMPRESSION: No sinusitis. Electronically signed by Leonard Husain 04/04/2019 9:31 AM
--- NOTE | 2019-04-04 15:04 | PROGRESS NOTE ---
DATE: 04/04/2019 SUBJECTIVE: The patient reports breathing better. She reports being up to shower and not using any oxygen. She is feeling okay. She has been coughing less. No fever or chills. OBJECTIVE: Vital Signs: Temperature 98.4 degrees, heart rate 67, respiratory rate 12, blood pressure 158/83, O2 saturation 96% on room air. General: This is a 53-year-old, female, lying in bed in no acute distress. Cardiovascular: S1, S2 heard. No murmurs, gallops, or rubs. Regular rate and rhythm. Respiratory: Minimal diffuse end-expiratory wheezing bilaterally. The patient is not using any accessory muscles or having work of breathing. Abdomen: Soft. Nontender to palpation. Bowel sounds present. No organomegaly. Extremities: No clubbing, cyanosis, or edema. Peripheral pulses present in both legs. Neurological: The patient is alert and oriented x3. Moves all 4 extremities. LABORATORY DATA: No labs from today. ASSESSMENT AND PLAN: 1. Acute hypoxemic respiratory failure secondary to chronic obstructive pulmonary disease exacerbation. At this point, the patient looks like she is turning the corner, feeling better, using less oxygen, so at this point, will continue with current management, including bronchodilators, antibiotics, and intravenous steroids. Pulmonary following this patient. Will follow recommendations. 2. Right lower lobe infiltrate. Will continue with ceftriaxone, Levaquin, and incentive spirometry. 3. Obstructive sleep apnea. The patient continues to use continuous positive airway pressure at home. 4. Uncontrolled diabetes mellitus. Hemoglobin A1c is not that high. Of course, glucose has been a little bit out of control because of steroid use. Will continue to titrate insulin, and use a sliding scale insulin. 5. History of coronary artery disease. The patient is on aspirin, statin, metoprolol, and Imdur. Not complaining of any chest pain. Will continue to monitor. 6. Disposition. I think this patient is getting better. If she is clinically okay and requiring oxygen by nasal cannula, I think we can let her go, and we may need to set up home oxygen for her. At this point, will continue to monitor here in the hospital. cc: Ambrocio Medina MD
[2019-04-04] MEDS: LEVAQUIN PO SCH (16:25)
[2019-04-04] MEDS: ROCEPHIN 1 GM in NS 50 ML IV SCH (21:34)
--- NOTE | 2019-04-05 02:10 | PULMONOLOGY PROGRESS NOTE ---
DATE: 04/04/2019 SUBJECTIVE: The patient is awake, alert, and conversant. She reports she is feeling better. OBJECTIVE: Vital Signs: The patient has been afebrile for the last 24 hours. Blood pressure 140/67, heart rate 73, respiratory rate 19, oxygen saturation 84%. HEENT: Pupils are equal and reactive. Oropharynx appears clear. Neck: Supple. Chest: Reveals occasional wheeze bilaterally. Cardiac: S1, S2. Abdomen: Obese and soft. Extremities: Reveal trace edema. LABORATORIES: Sinus x-rays reveal no evidence of sinusitis. Sputum culture is growing normal scotty. IMPRESSION: A 53-year-old with: 1. Acute chronic obstructive pulmonary disease exacerbation. 2. Bronchitis. 3. Morbid obesity. 4. Steroid-induced hyperglycemia. 5. Obstructive sleep apnea. 6. Asthma. PLAN: 1. Continue bronchodilators. 2. Continue current antibiotic regimen. 3. Encourage patient to ambulate as tolerated. 4. I agree with plans for follow-up CT which has been scheduled by Dr. Whitaker. cc: John Reyes MD
[2019-04-05] MEDS: DUONEB (A & A) INH SCH ×3 (04:22→12:11)
[2019-04-05] MEDS: TYLENOL PO PRN (04:32)
[2019-04-05 05:29] LABS: BASO# 0.01 X1000 (0.0-0.2); BASO% 0.1 % (0.0-0.8); HEMATOCRIT 42.5 % (37.0-47.0); HEMOGLOBIN 14.4 g/dL (12.0-16.0); IMM GRAN# 0.03 X1000 (0.0-0.04); IMM GRAN% 0.3 % (0.0-0.5); LYMPH# 0.66 X1000 (1.2-3.4); LYMPH% 6.8 % (20.5-51.1); MCH 30.3 PG (27-31); MCHC 33.9 g/dL (33-37); MCV 89.3 FL (81-99); MONO# 0.32 X1000 (0.11-0.59); MONO% 3.3 % (1.7-9.3); MPV 10.3 FL (7.4-10.4); NEUT# 8.64 X1000 (1.4-6.5); NEUT% 89.5 % (42.2-75.2); PLT 315 X1000 (130-400); RBC 4.76 XMIL (4.2-5.4); RDW 13.1 % (11.5-14.5); WBC 9.66 X1000 (4.8-10.8)
[2019-04-05 05:35] LABS: AGAP 12; BUN 25 mg/dL (8-22); CALCIUM 8.8 mg/dL (8.8-10.2); CHLORIDE 97 mmol/L (98-107); COSMO 290; CREATININE 0.8 mg/dL (0.5-0.9); ESTIMATED GFR > 60; GLUCOSE 346 mg/dL (70-104); SODIUM 136 mmol/L (136-145); TCO2 27 mmol/L (25-35)
[2019-04-05] MEDS: HUMALOG SUBQ SCH ×2 (06:41→11:43)
[2019-04-05] MEDS: GLUCOTROL PO SCH (06:42)
--- NOTE | 2019-04-05 08:58 | Diag Imaging Result Doc PS360 ---
CT THORAX W/CONTRAST - 04/05/2019 INDICATION: pleural nodule COMPARISON: 01/26/2019 FINDINGS: The small area of atelectasis in the right upper lobe has resolved. No infiltrates or nodules. No adenopathy. Heart and great vessels are normal. Upper abdominal images are unremarkable. Bones are intact and well mineralized. IMPRESSION: Negative exam. This exam was performed using automated exposure control, adjustment of mA or kV according to patient size, and/or use of iterative reconstruction technique Electronically signed by Leandro Edgar 04/05/2019 8:59 AM
[2019-04-05] MEDS: SOLU-MEDROL IV SCH (09:03)
[2019-04-05] MEDS: TOPROL XL PO SCH (09:05)
[2019-04-05] MEDS: IMDUR PO SCH (09:05)
[2019-04-05] MEDS: LIPITOR PO SCH (09:05)
[2019-04-05] MEDS: PRINZIDE 20/12.5MG PO SCH (09:05)
[2019-04-05] MEDS: LANTUS INSULIN SUBQ SCH (09:06)
[2019-04-05] MEDS: ASPIRIN EC PO SCH (09:18)
[2019-04-05 11:42] VITALS: BP 153/77
[2019-04-05] MEDS: LEVAQUIN PO SCH (14:40)
--- NOTE | 2019-04-08 12:52 | DISCHARGE SUMMARY ---
ADMISSION DATE: 03/31/2019 DISCHARGE DATE: 04/05/2019 DISCHARGE DIAGNOSES: 1. Acute hypoxemic respiratory failure improved. 2. Chronic obstructive pulmonary disease exacerbation improved. 3. Right lower lobe pneumonia under treatment. 4. Coronary artery disease. 5. Hypertension. 6. Diabetes mellitus type 2. 7. Dyslipidemia. CONSULTATIONS: Dr. Reyes from Pulmonary. PROCEDURES: 1. Chest x-ray done on admission showed atelectasis versus pneumonia in the right lower lobe. 2. Sinus x-ray showed no sinus opacification. No air fluid levels. No mucosal thickening. 3. Chest CT was negative. HOSPITAL COURSE: This is a 53-year-old female who presented to the emergency department complaining of chills, low grade fever, cough and yellow and green sputum and wheezing as well. Patient was found to have pneumonia so she was started on broad-spectrum antibiotics and also breathing treatments and intravenous steroids. The patient was initially on Tamiflu thinking that she may have this influenza but then we stopped it because the test returned negative. The patient continued receiving Rocephin and azithromycin. The patient started progressively getting better. Upon discharge, we will continue with antibiotics, breathing treatments as needed at home and she is supposed to have followup with her primary care physician in a week. DISCHARGE PHYSICAL EXAMINATION: Vital Signs: Temperature 98.1 degrees, heart rate 67, respiratory rate 20, blood pressure 153/77, O2 saturation 99% on 3 L nasal cannula. HEENT examination: This is a 53-year-old female lying in bed, in no acute distress. Cardiovascular: S1, S2 heard. No murmurs, gallops, or rubs. Regular rate and rhythm. Respiratory exam: Minimal decreased breath sounds globally with very minimal wheezing noted in both pulmonary bases. Patient not using any accessory muscles or having work of breathing. Abdomen: Soft, nontender to palpation. Bowel sounds present. No organomegaly. Extremities: No clubbing, cyanosis, or edema. Peripheral pulses present in both legs. Neurological: The patient alert and oriented x3. Moves 4 extremities. DISCHARGE DISPOSITION: Home to self-care. LIST OF MEDICATIONS: 1. Cefdinir 300 mg 1 tablet p.o. b.i.d. for a week. 2. Medrol Dosepak as directed. 3. Combivent Respimat 1 hydration every 4 hours as needed. 4. Aspirin 1 tablet p.o. daily. 5. Glipizide 10 mg 1 tablet p.o. daily. 6. Lisinopril/hydrochlorothiazide 20/12.5, 1 tab, p.o. daily. 7. Isosorbide 1 tablet p.o. daily. 8. Metformin 1 tablet p.o. b.i.d. 9. Atorvastatin 40 mg 1 tablet p.o. at bedtime. 10. Toprol-XL 50 mg 1 tablet p.o. b.i.d. 11. Albuterol as needed for shortness of breath. Time discharging this patient was 33 minutes. cc: Ambrocio Medina MD
== END 2019-04-05 15:27 | disposition home or self-care (01) | DRG 193 ==
LOC: ED 11:46 → EDIPHOLD 17:52 → SUATTDRO 17:52 → 1N 20:03
PROVIDERS: ATTEND Internal Medicine